=== PATIENT | male | born 1950 | race Asian ===

== ENCOUNTER 2017-01-31 22:33 | Observation (INO) | payer OTHER ==
[2017-01-31 22:51] VITALS: BMI 25.7
[2017-01-31] MEDS ORDERED: ASPIRIN 81 MG CHEWABLE TABLETS PO ONE (22:54)
--- NOTE | 2017-01-31 22:54 | PDOC ---
History of Present Illness - General Chief Complaint: Chest Pain Stated Complaint: CHEST PAIN Time Seen by Provider: 01/31/17 22:53 - History of Present Illness Initial Comments: 01/31/17 23:32 66-year-old male with history of hypertension and diabetes complaining of left- sided chest pain since 4 PM on and off radiating to the left posterior chest. Patient reports slight shortness of breath at the time of the pain. Denies nausea vomiting, diaphoresis, dizziness, headache, lower extremity swelling. Denies recent travel. Patient is currently on baby aspirin daily. Past History - Past Medical History Allergies/Adverse Reactions: Allergies Allergy/AdvReac Type Severity Reaction Status Date / Time No Known Allergies Allergy Verified 01/31/17 22:51 Home Medications: Ambulatory Orders Aspirin [Aspirin EC] 81 mg PO DAILY 12/06/14 Diphenhydramine [Benadryl Capsule -] 50 mg PO HS 12/06/14 Fluticasone Prop 0.05% Nasal [Flonase -] 1 - 2 spray NS DAILY PRN 12/06/14 Gabapentin 300 mg PO BID 12/06/14 Lisinopril [Prinivil -] 2.5 mg PO DAILY 12/06/14 Loratadine 10 mg PO DAILY 12/06/14 Metformin HCl 500 mg PO BID 12/06/14 Omeprazole 20 mg PO DAILY 12/06/14 Sitagliptin Phosphate [Januvia] 50 mg PO DAILY 12/06/14 Glipizide 5 mg PO BID 04/03/15 [place]-3S/Dha/Epa/Fish Oil [Fish Oil 1,200 mg Softgel] 1 each PO DAILY 04/03/15 Pyridoxine HCl (B-6) [Vitamin B6 -] 100 mg PO DAILY 04/03/15 Vitamin E 1,000 unit PO DAILY 04/03/15 Oxycodone HCl/Acetaminophen [Percocet 5/325 -] 1 - 2 tab PO Q4H PRN #20 tablet 04/09/15 Anemia: No Asthma: No Cancer: No Cardiac Disorders: No CVA: No COPD: No CHF: No Dementia: No Diabetes: Yes (controlled with oral medications) GI Disorders: No Disorders: No HTN: No Hypercholesterolemia: No HIV: Yes Liver Disease: No Seizures: No Thyroid Disease: No - Surgical History Abdominal Surgery: No Appendectomy: No Cardiac Surgery: No Cholecystectomy: No Lung Surgery: No Neurologic Surgery: No Orthopedic Surgery: Yes (LEFT CARPAL TUNNEL RELEASE 11/2014) - Suicide/Smoking/Psychosocial Hx Smoking History: Never smoked Have you smoked in the past 12 months: No Information on smoking cessation initiated: No Hx Alcohol Use: No Drug/Substance Use Hx: No Substance Use Type: None Hx Substance Use Treatment: No Cardiac Specific PMH - Complaint Specific PMHX Pacemaker: No Review of Systems - Review of Systems Able to Perform ROS?: Yes Is the patient limited Hungarian proficient: No Constitutional: No: Symptoms Reported, See HPI, Chills, Diaphoresis, Fever, Loss of Appetite, Malaise, Night Sweats, Weakness, Weight Stable, Unintentional Wgt. Loss, Unexplained wgt Loss, Other Respiratory: Yes: Shortness of Breath. No: Symptoms reported, See HPI, Cough, Orthopnea, SOB with Exertion, SOB at Rest, Stridor, Wheezing, Productive cough, Hemoptysis, Other Cardiac (ROS): Yes: Chest Pain. No: Symptoms Reported, See HPI, Edema, Irregular Heart Rate, Lightheadedness, Palpitations, Syncope, Chest Tightness, Other ABD/GI: No: Symptoms Reported, See HPI, Abdominal Distended, Abd. Pain w/ defecation, Blood Streaked Bowels, Constipated, Diarrhea, Difficulty Swallowing , Nausea, Poor Appetite, Poor Fluid Intake, Rectal Bleeding, Vomiting, Indigestion, Abdominal cramping, Tarry Stools, Other *Physical Exam - Vital Signs Last Vital Signs Temp Pulse Resp BP Pulse Ox 97.9 F 72 20 117/69 100 01/31/17 22:48 01/31/17 22:48 01/31/17 22:48 01/31/17 22:48 01/31/17 22:48 - Physical Exam General Appearance: Yes: Appropriately Dressed Respiratory/Chest: positive: Lungs Clear, Normal Breath Sounds. negative: Chest Tender, Respiratory Distress, Accessory Muscle Use, Labored Respiration, Rapid RR, Decreased Breath Sounds, Paradoxal Breathing, Crackles, Rales, Rhonchi , Stridor, Wheezing, Hyperresonant, Dullness, Plerual Rub, Other Cardiovascular: positive: Regular Rhythm, Regular Rate Gastrointestinal/Abdominal: positive: Normal Bowel Sounds, Soft Rectal Exam: positive: heme negative stool Musculoskeletal: positive: Normal Inspection Extremity: positive: Normal Capillary Refill, Normal Inspection, Normal Range of Motion Integumentary: positive: Normal Color, Dry, Warm Neurologic: positive: Fully Oriented, Alert, Normal Mood/Affect Heart Score/ECG Review - History History: Moderately suspicious - Electrocardiogram EKG: Normal - Age Age: >/= 65 - Risk Factors Risk Factors Heart Score: Yes Hx Hypertension, Yes Hx Diabetes Based on the list above the patient has:: 1-2 risk factors - Troponin Troponin: </= normal limit - Score Heart Score - Total: 4 - ECG Intrepretation Rhythm: Regular Rhythm Comment:: 01/31/17 23:35 NSR: 66 ED Treatment Course - LABORATORY CBC & Chemistry Diagram: 02/01/17 00:00 02/01/17 00:00 - ADDITIONAL ORDERS Additional order review: Laboratory Results 02/01/17 02/01/17 02/01/17 00:00 00:00 00:00 PT with INR INR D-Dimer < 200 Sodium 139 Potassium 5.4 H Chloride 104 Carbon Dioxide 28 Anion Gap 7 L BUN 18 Creatinine 1.5 H Creat Clearance w eGFR 46.68 Random Glucose 174 H Calcium 8.8 Magnesium 2.3 Total Bilirubin 0.3 AST 15 ALT 20 Alkaline Phosphatase 82 Creatine Kinase 69 Troponin I < 0.02 Total Protein 7.1 Albumin 3.5 Urine Color Straw Urine Appearance Clear Urine pH 5.0 Ur Specific [place] 1.008 Urine Protein Negative Urine Glucose (UA) 1+ H Urine Ketones Negative Urine Blood Negative Urine Nitrite Negative Urine Bilirubin Negative Urine Urobilinogen Negative 02/01/17 00:00 PT with INR 10.10 INR 0.89 D-Dimer Sodium Potassium Chloride Carbon Dioxide Anion Gap BUN Creatinine Creat Clearance w eGFR Random Glucose Calcium Magnesium Total Bilirubin AST ALT Alkaline Phosphatase Creatine Kinase Troponin I Total Protein Albumin Urine Color Urine Appearance Urine pH Ur Specific [place] Urine Protein Urine Glucose (UA) Urine Ketones Urine Blood Urine Nitrite Urine Bilirubin Urine Urobilinogen 02/01/17 00:00 RBC 4.97 MCV 80.7 MCHC 32.5 RDW 14.8 MPV 8.9 Neutrophils % 47.8 Lymphocytes % 40.1 H Monocytes % 9.3 Eosinophils % 2.1 Basophils % 0.7 - RADIOLOGY Radiology Studies Ordered: Category Date Time Status CHEST PA & LAT [RAD] Stat Radiology 01/31/17 22:54 Taken Chest X-Ray Result: No Infiltrates (official read pending) - Medications Given in the ED: ED Medications Discontinued Medications Generic Name Dose Route Start Last Admin Trade Name Marisa PRN Reason Stop Dose Admin Aspirin 162 mg 01/31/17 22:54 01/31/17 23:47 Asa - PO 01/31/17 22:55 162 mg ONCE ONE Administration Progress Note - Progress Note Progress Note: A: chest pain P: cbc cmp ekg cardiac ua chest xray Medical Decision Making - Medical Decision Making 02/01/17 02:58 patient signed out to facundo SENA/ Natali. patient to be placed on observation criteria for chest pain protocol. *DC/Admit/Observation/Transfer Diagnosis at time of Disposition: Chest pain Qualifiers: Chest pain type: unspecified Qualified Code(s): R07.9 - Chest pain, unspecified - Discharge Dispostion Admit: Yes Decision to Admit order Date/Time: Decision to Admit Order Category Date Time Status Decision to Admit to Hospital Routine Admission 02/01/17 02:55 Ordered - Referrals Referrals: Mery Tran MD [Primary Care Provider] - - Patient Instructions - Post Discharge Activity
[2017-01-31] MEDS ORDERED: ASPIRIN 81 MG CHEWABLE TABLETS ONE (23:38)
[2017-02-01 00:31] LABS: BASOPHIL 0.7 % (0-2.0); EOSINOPHIL 2.1 % (0-4.5); MCH 26.3 pg (25.7-33.7); MCHC 32.5 g/dl (32.0-35.9); MEAN CELL VOLUME 80.7 fl (80-96); MEAN PLT VOLUME 8.9 fl (7.5-11.1); NEUTROPHILS 47.8 % (42.8-82.8); PLATELET COUNT 247 K/MM3 (134-434); RDW 14.8 % (11.9-15.9); WHITE BLOOD COUNT 7.6 K/mm3 (4.0-10.0)
[2017-02-01 00:33] LABS: URINE APPEARANCE CLEAR; URINE BILIRUBIN NEGATIVE (NEGATIVE); URINE BLOOD NEGATIVE (NEGATIVE); URINE COLOR STRAW; URINE GLUCOSE (UA) 1+ (NEGATIVE); URINE KETONE NEGATIVE (NEGATIVE); URINE NITRITE NEGATIVE (NEGATIVE); URINE PROTEIN NEGATIVE (NEGATIVE); URINE UROBILINOGEN NEGATIVE mg/dL (0.2-1.0)
[2017-02-01 00:47] LABS: INR 0.89 (0.82-1.09); PROTHROMBIN TIME (PATIENT) 10.1 SEC (9.98-11.88)
[2017-02-01 01:01] LABS: ALBUMIN 3.5 g/dl (3.4-5.0); ANION GAP 7 (8-16); BILIRUBIN,TOTAL 0.3 mg/dL (0.2-1.0); CALCIUM 8.8 mg/dL (8.5-10.1); CO2 28 mmol/L (21-32); CREATININE 1.5 mg/dL (0.7-1.3); GLUCOSE,RANDOM 174 mg/dL (74-106); MAGNESIUM 2.3 mg/dL (1.8-2.4); SGOT/AST 15 U/L (15-37); SGPT/ALT 20 U/L (12-78); TOT PROT 7.1 g/dl (6.4-8.2)
[2017-02-01 01:04] LABS: ALK PHOS 82 U/L (45-117); CPK 69 IU/L (39-308); TROPONIN I < 0.02 ng/ml (0.00-0.05)
--- NOTE | 2017-02-01 04:02 | HP ---
CHIEF COMPLAINT: chest pain PCP: Sharonda HISTORY OF PRESENT ILLNESS: This is a 66 year old male with a past medical history of DM who presented to the ED with a report of intermittent chest pain since 4pm. Pt denies alleviating or aggravating factors. No pain at present, but reports pain was present about 30 min ago. Reports that he also gets a tingling sensation in his left upper back. + SOB associated with pain. Denies palpitations, abd pain, N/V. Reports that he had an echo and a stress test last year that were both normal. Pt and daughter cannot remember the name of the editing internship he saw. ER course was notable for: (1) troponin neg x1 (2) ECG unremarkable Recent Travel: [place] PAST MEDICAL HISTORY: DM PAST SURGICAL HISTORY: right carpal tunnel and long trigger finger release 04/09/15 left carpal tunnel and ring trigger finger release 12/11/14 Social History: Smoking: pt denies Alcohol: pt denies Drugs: pt denies Family History: mother age 100 father age 69, asthma 2 brothers with no medical problems 4 children with no medical problems Allergies No Known Allergies Allergy (Verified 01/31/17 22:51) HOME MEDICATIONS: 3 Medication Instructions Recorded Aspirin [Aspirin EC] 81 mg PO DAILY 12/06/14 Fluticasone Prop 0.05% Nasal 1 - 2 spray NS DAILY PRN 12/06/14 [Flonase -] Lisinopril [Prinivil -] 2.5 mg PO DAILY 12/06/14 Loratadine 10 mg PO DAILY 12/06/14 Metformin HCl 500 mg PO BID 12/06/14 Omeprazole 20 mg PO DAILY 12/06/14 Sitagliptin Phosphate [Januvia] 50 mg PO DAILY 12/06/14 Glipizide 5 mg PO BID 04/03/15 [place]-3S/Dha/Epa/Fish Oil [Fish 1 each PO DAILY 04/03/15 Oil 1,200 mg Softgel] Pyridoxine HCl (B-6) [Vitamin B6 -] 100 mg PO DAILY 04/03/15 Vitamin E 1,000 unit PO DAILY 04/03/15 Pregabalin [Lyrica -] 75 mg PO DAILY 02/01/17 REVIEW OF SYSTEMS CONSTITUTIONAL: Absent: fever, chills, diaphoresis, generalized weakness, malaise, loss of appetite, weight change HEENT: Absent: rhinorrhea, nasal congestion, throat pain, throat swelling, difficulty swallowing, mouth swelling, ear pain, eye pain, visual changes CARDIOVASCULAR: Present: chest pain Absent: syncope, palpitations, irregular heart rate, lightheadedness, peripheral edema RESPIRATORY: Present: shortness of breath Absent: cough, dyspnea with exertion, orthopnea, wheezing, stridor, hemoptysis GASTROINTESTINAL: Absent: abdominal pain, abdominal distension, nausea, vomiting, diarrhea, constipation, melena, hematochezia GENITOURINARY: Absent: dysuria, frequency, urgency, hesitancy, hematuria, flank pain, genital pain MUSCULOSKELETAL: Absent: myalgia, arthralgia, joint swelling, back pain, neck pain SKIN: Absent: rash, itching, pallor HEMATOLOGIC/IMMUNOLOGIC: Absent: easy bleeding, easy bruising, lymphadenopathy, frequent infections ENDOCRINE: Absent: unexplained weight gain, unexplained weight loss, heat intolerance, cold intolerance NEUROLOGIC: Absent: headache, focal weakness or paresthesias, dizziness, unsteady gait, seizure, mental status changes, bladder or bowel incontinence PSYCHIATRIC: Absent: anxiety, depression, suicidal or homicidal ideation, hallucinations. PHYSICAL EXAMINATION Vital Signs - 24 hr 3 01/31/17 22:48 Temperature 97.9 F Pulse Rate 72 Respiratory 20 Rate Blood Pressure 117/69 O2 Sat by Pulse 100 Oximetry (%) GENERAL: Awake, alert, and fully oriented, in no acute distress. HEAD: Normal with no signs of trauma. EYES: Pupils equal, round and reactive to light, extraocular movements intact, sclera anicteric, conjunctiva clear. No lid lag. EARS, NOSE, THROAT: Ears normal, nares patent, oropharynx clear without exudates. Moist mucous membranes. NECK: Normal range of motion, supple without lymphadenopathy, JVD, or masses. LUNGS: Breath sounds equal, clear to auscultation bilaterally. No wheezes, and no crackles. No accessory muscle use. HEART: Regular rate and rhythm, normal S1 and S2 without murmur, rub or gallop. ABDOMEN: Soft, nontender, not distended, normoactive bowel sounds, no guarding, no rebound, no masses. No hepatomegaly or splenomegaly. MUSCULOSKELETAL: Normal range of motion at all joints. No bony deformities or tenderness. No CVA tenderness. UPPER EXTREMITIES: 2+ pulses, warm, well-perfused. No cyanosis. No clubbing. No peripheral edema. LOWER EXTREMITIES: 2+ pulses, warm, well-perfused. No calf tenderness. No peripheral edema. NEUROLOGICAL: Cranial nerves II-XII intact. Normal speech. Normal gait. PSYCHIATRIC: Cooperative. Good eye contact. Appropriate mood and affect. SKIN: Warm, dry, normal turgor, no rashes or lesions noted, normal capillary refill. Laboratory Results - last 24 hr 3 02/01/17 02/01/17 02/01/17 00:00 00:00 00:00 WBC 7.6 RBC 4.97 Hgb 13.1 Hct 40.2 MCV 80.7 MCH 26.3 MCHC 32.5 RDW 14.8 Plt Count 247 MPV 8.9 Neutrophils % 47.8 Lymphocytes % 40.1 H Monocytes % 9.3 Eosinophils % 2.1 Basophils % 0.7 PT with INR 10.10 INR 0.89 D-Dimer < 200 Sodium 139 Potassium 5.4 H Chloride 104 Carbon Dioxide 28 Anion Gap 7 L BUN 18 Creatinine 1.5 H Creat Clearance w eGFR 46.68 Random Glucose 174 H Calcium 8.8 Magnesium 2.3 Total Bilirubin 0.3 AST 15 ALT 20 Alkaline Phosphatase 82 Creatine Kinase 69 Troponin I < 0.02 Total Protein 7.1 Albumin 3.5 Urine Color Urine Appearance Urine pH Ur Specific [place] Urine Protein Urine Glucose (UA) Urine Ketones Urine Blood Urine Nitrite Urine Bilirubin Urine Urobilinogen 3 Urine Color Straw 02/01/17 00:00 Urine Appearance Clear 02/01/17 00:00 Urine pH 5.0 (5.0-8.0) 02/01/17 00:00 Ur Specific [place] 1.008 (1.001-1.035) 02/01/17 00:00 Urine Protein Negative (NEGATIVE) 02/01/17 00:00 Urine Glucose (UA) 1+ (NEGATIVE) H 02/01/17 00:00 Urine Ketones Negative (NEGATIVE) 02/01/17 00:00 Urine Blood Negative (NEGATIVE) 02/01/17 00:00 Urine Nitrite Negative (NEGATIVE) 02/01/17 00:00 Urine Bilirubin Negative (NEGATIVE) 02/01/17 00:00 ECG Normal sinus rhythm vent rate 667, QTC [address] / T changes ASSESSMENT/PLAN: 66yM with PMH DM presented to the ED with intermittent left sided chest pain since 4pm. Chest pain - troponin neg x1, trend x 2 more - ECG unremarkable, repeat in am - consider cardiology consult and stress test, outpatient vs inpt DM - hold metformin and glipizide, cont januvia - BGM ACHS with novolog sliding scale. DVT PPX - chemoprophylaxis deferred as anticipated LOS<48h FEN - tolerating po - BMP in am - diabetic diet Dispo: Pt currently requires inpatient observation for management of his emergent condition but anticipated LOS is <2MN so will admit to obs. Visit type - Emergency Visit Emergency Visit: Yes ED Registration Date: 01/31/17 Care time: The patient presented to the Emergency Department on the above date and was hospitalized for further evaluation of their emergent condition. - New Patient This patient is new to me today: Yes Date on this admission: 02/01/17 - Critical Care Critical Care patient: No
[2017-02-01] MEDS: INSULIN SLIDING SCALE (NOVOLOG) 1 VIAL SQ SCH ×4 (06:19→21:33)
[2017-02-01] MEDS: sitaGLIPtin PHOSPHATE 50 MG TABLET PO SCH (06:44)
[2017-02-01] MEDS ORDERED: glipiZIDE 5 MG TABLET (FP) PO SCH (07:00)
[2017-02-01 07:35] LABS: BASOPHIL 1.4 % (0-2.0); EOSINOPHIL 2.5 % (0-4.5); MCH 25.7 pg (25.7-33.7); MEAN CELL VOLUME 80.2 fl (80-96); MEAN PLT VOLUME 8.8 fl (7.5-11.1); NEUTROPHILS 45.6 % (42.8-82.8); PLATELET COUNT 239 K/MM3 (134-434); RDW 14.7 % (11.9-15.9); WHITE BLOOD COUNT 7.1 K/mm3 (4.0-10.0)
[2017-02-01 08:18] LABS: ANION GAP 7 (8-16); CALCIUM 8.5 mg/dL (8.5-10.1); CO2 26 mmol/L (21-32); CREATININE 1.2 mg/dL (0.7-1.3); GLUCOSE,RANDOM 107 mg/dL (74-106); MAGNESIUM 2.4 mg/dL (1.8-2.4); PHOSPHOROUS 3.7 mg/dL (2.5-4.9)
[2017-02-01 08:30] LABS: CPK 49 IU/L (39-308); TROPONIN I < 0.02 ng/ml (0.00-0.05)
[2017-02-01] MEDS ORDERED: PYRIDOXINE HCL (B-6) 100 MG TABLET PO SCH (10:00)
--- NOTE | 2017-02-01 10:32 | CON.CARD ---
Consult Consult Specialty:: Cardiology Reason for Consultation:: Chest pain - History of Present Illness History of Present Illness: This is a 66 year old Angolan male with a past medical history of DM who presented to the ED with a report of intermittent chest pain since 4pm. Pt denies alleviating or aggravating factors. No pain at present, but reports pain was present about 30 min ago. Reports that he also gets a tingling sensation in his left upper back. + SOB associated with pain. Denies palpitations, abd pain, N/V. Reports that he had an echo and a stress test last year that were both normal. 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 - History Source History Provided By: Patient, Medical Record - Past Medical History Cardio/Vascular: Yes: HTN, Hyperlipdemia Endocrine: Yes: Diabetes Mellitus - Alcohol/Substance Use Hx Alcohol Use: No - Smoking History Smoking history: Never smoked Have you smoked in the past 12 months: No Home Medications - Allergies Allergies/Adverse Reactions: Allergies Allergy/AdvReac Type Severity Reaction Status Date / Time No Known Allergies Allergy Verified 01/31/17 22:51 - Home Medications Home Medications: Ambulatory Orders Aspirin [Aspirin EC] 81 mg PO DAILY 12/06/14 Fluticasone Prop 0.05% Nasal [Flonase -] 1 - 2 spray NS DAILY PRN 12/06/14 Lisinopril [Prinivil -] 2.5 mg PO DAILY 12/06/14 Loratadine 10 mg PO DAILY 12/06/14 Metformin HCl 500 mg PO BID 12/06/14 Omeprazole 20 mg PO DAILY 12/06/14 Sitagliptin Phosphate [Januvia] 50 mg PO DAILY 12/06/14 Glipizide 5 mg PO BID 04/03/15 [place]-3S/Dha/Epa/Fish Oil [Fish Oil 1,200 mg Softgel] 1 each PO DAILY 04/03/15 Pyridoxine HCl (B-6) [Vitamin B6 -] 100 mg PO DAILY 04/03/15 Vitamin E 1,000 unit PO DAILY 04/03/15 Pregabalin [Lyrica -] 75 mg PO DAILY 02/01/17 Review of Systems - Review of Systems Constitutional: reports: No Symptoms Eyes: reports: No Symptoms HENT: reports: No Symptoms Neck: reports: No Symptoms Cardiovascular: reports: Chest Pain Gastrointestinal: reports: No Symptoms Genitourinary: reports: No Symptoms Breasts: reports: No Symptoms Reported Musculoskeletal: reports: No Symptoms Integumentary: reports: No Symptoms Neurological: reports: No Symptoms Endocrine: reports: No Symptoms Hematology/Lymphatic: reports: No Symptoms Psychiatric: reports: No Symptoms Vital Signs: Vital Signs Temperature 97.6 F 02/01/17 08:00 Pulse Rate 62 02/01/17 08:00 Respiratory Rate 16 02/01/17 08:00 Blood Pressure 110/66 02/01/17 08:00 O2 Sat by Pulse Oximetry (%) 99 02/01/17 05:48 Constitutional: Yes: Well Nourished, No Distress, Calm Eyes: Yes: WNL, Conjunctiva Clear, EOM Intact HENT: Yes: WNL, Atraumatic, Normocephalic Neck: Yes: WNL, Supple, Trachea Midline Respiratory: Yes: WNL, Regular, CTA Bilaterally Gastrointestinal: Yes: WNL, Normal Bowel Sounds Renal/: Yes: WNL Cardiovascular: Yes: WNL, Regular Rate and Rhythm Musculoskeletal: Yes: WNL Extremities: Yes: WNL Integumentary: Yes: WNL Neurological: Yes: WNL, Alert, Oriented ...Motor Strength: WNL Psychiatric: Yes: WNL, Alert, Oriented - Other Data Labs, Other Data: CBC, BMP 02/01/17 06:30 02/01/17 06:30 INR, PTT INR 0.89 (0.82-1.09) 02/01/17 00:00 Troponin, BNP 02/01/17 02/01/17 00:00 06:30 Troponin I < 0.02 < 0.02 Troponin, BNP 02/01/17 02/01/17 00:00 06:30 Troponin I < 0.02 < 0.02 Imaging - Results Chest X-ray: Image Reviewed (no i/e) EKG: Image Reviewed (nsr wnl) Problem List - Problems (1) Chest pain Code(s): R07.9 - CHEST PAIN, UNSPECIFIED Qualifiers: Chest pain type: unspecified Qualified Code(s): R07.9 - Chest pain, unspecified Assessment/Plan CP sx r/o KS neg dm htn hlp Plan ECHO MIBI st ASA keep ldl below 70 mg/dl
[2017-02-01 10:56] LABS: URINE LEUK ESTERASE Negative (NEGATIVE)
[2017-02-01] MEDS: PREGABALIN 75 MG CAPSULE PO SCH (16:02)
[2017-02-01] MEDS: PANTOPRAZOLE 20 MG TABLET (FP) PO SCH (16:02)
[2017-02-01] MEDS: OMEGA-3 ACID ETHYL ESTERS (FATTY-ACIDS) 1 GM CAPSULE (FP) PO SCH (16:02)
[2017-02-01] MEDS: LORATADINE 10 MG TABLET PO SCH (16:02)
[2017-02-01] MEDS: LISINOPRIL 5 MG TABLET (FP) PO SCH (16:03)
[2017-02-01] MEDS: ASPIRIN COATED 81 MG TABLET.EC PO SCH (16:03)
[2017-02-01] MEDS ORDERED: PYRIDOXINE HCL (B-6) 50 MG TABLET (FP) PO SCH (16:07)
[2017-02-01] MEDS ORDERED: INSULIN (NOVOLOG) ASPART 100 UNITS/ML 10ML VIAL ONE ×2 (16:51→18:09)
[2017-02-01] MEDS: VITAMIN E 400 INTERNATIONAL-UNITS CAPSULE (FP) PO SCH ×2 (16:55→17:35)
--- NOTE | 2017-02-01 17:52 | EKG ---
Test Reason : Blood Pressure : / mmHG Vent. Rate : 070 BPM Atrial Rate : 070 BPM P-R Int : 146 ms QRS Dur : 082 ms QT Int : 368 ms P-R-T Axes : 025 023 033 degrees QTc Int : 397 ms NORMAL SINUS RHYTHM ST ELEVATION, CONSIDER EARLY REPOLARIZATION, PERICARDITIS, OR INJURY NO PREVIOUS ECGS AVAILABLE REPEAT EKG IF CLINICALLY INDICATED Confirmed by MANAS NGUYỄN MD ([id number]) on 02/01/2017 5:52:30 PM Referred By: Prerna SOTO Confirmed By:MANAS NGUYỄN MD
[2017-02-01 17:54] LABS: CPK 126 IU/L (39-308); TROPONIN I < 0.02 ng/ml (0.00-0.05)
--- NOTE | 2017-02-01 18:05 | EKG ---
Test Reason : Blood Pressure : / mmHG Vent. Rate : 067 BPM Atrial Rate : 067 BPM P-R Int : 154 ms QRS Dur : 078 ms QT Int : 372 ms P-R-T Axes : 043 040 045 degrees QTc Int : 393 ms NORMAL SINUS RHYTHM RSR' IN V2 NO PREVIOUS ECGS AVAILABLE REPEAT EKG IF CLINICALLY INDICATED Confirmed by MANAS NGUYỄN MD ([id number]) on 02/01/2017 6:05:13 PM Referred By: Confirmed By:MANAS NGUYỄN MD
[2017-02-01] MEDS ORDERED: PT OWN MED DRAWER 7, Y5N ONE (18:09)
[2017-02-01] MEDS: POLYETHYLENE GLYCOL 3350 119 GM BTL PO SCH ×2 (18:22→21:33)
[2017-02-02] MEDS: INSULIN SLIDING SCALE (NOVOLOG) 1 VIAL SQ SCH ×2 (06:16→11:49)
[2017-02-02] MEDS: sitaGLIPtin PHOSPHATE 50 MG TABLET PO SCH ×3 (06:18→07:50)
[2017-02-02] MEDS ORDERED: PT OWN MED DRAWER 7, Y5N ONE (07:46)
[2017-02-02 08:27] LABS: CHOLESTEROL 240 mg/dL (50-200)
[2017-02-02 08:28] VITALS: BP 123/50; PULSE 66; TEMP 97.9
[2017-02-02] MEDS: POLYETHYLENE GLYCOL 3350 119 GM BTL PO SCH (09:43)
[2017-02-02] MEDS: LORATADINE 10 MG TABLET PO SCH (09:48)
[2017-02-02] MEDS: ASPIRIN COATED 81 MG TABLET.EC PO SCH (09:48)
[2017-02-02] MEDS: PANTOPRAZOLE 20 MG TABLET (FP) PO SCH (09:48)
[2017-02-02] MEDS: LISINOPRIL 5 MG TABLET (FP) PO SCH (09:48)
[2017-02-02] MEDS: PREGABALIN 75 MG CAPSULE PO SCH (09:48)
[2017-02-02] MEDS: OMEGA-3 ACID ETHYL ESTERS (FATTY-ACIDS) 1 GM CAPSULE (FP) PO SCH (09:48)
[2017-02-02] MEDS: VITAMIN E 400 INTERNATIONAL-UNITS CAPSULE (FP) PO SCH (09:50)
--- NOTE | 2017-02-02 10:45 | PN ---
Progress Note, Physician History of Present Illness: This is a 66 year old Armenian male with a past medical history of DM who presented to the ED with a report of intermittent chest pain since 4pm. Pt denies alleviating or aggravating factors. No pain at present, but reports pain was present about 30 min ago. Reports that he also gets a tingling sensation in his left upper back. + SOB associated with pain. Denies palpitations, abd pain, N/V. Reports that he had an echo and a stress test last year that were both normal. Pt and daughter cannot remember the name of the commercial sewing instructor he saw. - Current Medication List Current Medications: Active Medications Aspirin (Ecotrin -) 81 mg PO DAILY [facility] Last Admin: 02/02/17 09:48 Dose: 81 mg Atorvastatin Calcium (Lipitor -) 80 mg PO HS [facility] Insulin Aspart (Novolog Vial Sliding Scale -) 1 vial SQ ACHS [facility] PRN Reason: Protocol Last Admin: 02/02/17 06:16 Dose: Not Given Lisinopril (Prinivil) 2.5 mg PO DAILY [facility] Last Admin: 02/02/17 09:48 Dose: 2.5 mg Loratadine (Claritin -) 10 mg PO DAILY [facility] Last Admin: 02/02/17 09:48 Dose: 10 mg [id number] Ethyl Esters (Lovaza -) 1 gm PO DAILY [facility] Last Admin: 02/02/17 09:48 Dose: 1 gm Pantoprazole Sodium (Protonix -) 20 mg PO DAILY [facility] Last Admin: 02/02/17 09:48 Dose: 20 mg Polyethylene Glycol (Miralax (For Daily Use) -) 17 gm PO BID [facility] Last Admin: 02/02/17 09:43 Dose: Not Given Pregabalin (Lyrica -) 75 mg PO DAILY [facility] Last Admin: 02/02/17 09:48 Dose: 75 mg Pyridoxine HCl (Vitamin B6 -) 100 mg PO DAILY [facility] Last Admin: 02/02/17 09:51 Dose: 100 mg Sitagliptin Phosphate (Januvia -) 50 mg PO DAILY@0700 [facility] Last Admin: 02/02/17 07:50 Dose: 50 mg Vitamin E (Vitamin E -) 800 unit PO DAILY [facility] Last Admin: 02/02/17 09:50 Dose: 800 unit - Objective Vital Signs: Vital Signs Temperature 97.9 F 02/02/17 08:27 Pulse Rate 66 02/02/17 08:27 Respiratory Rate 16 02/02/17 08:27 Blood Pressure 123/50 02/02/17 08:27 O2 Sat by Pulse Oximetry (%) 97 02/01/17 20:00 Eyes: Yes: WNL, Conjunctiva Clear, EOM Intact HENT: Yes: WNL, Atraumatic, Normocephalic Neck: Yes: WNL, Supple, Trachea Midline Cardiovascular: Yes: WNL, Regular Rate and Rhythm Respiratory: Yes: WNL, Regular, CTA Bilaterally Gastrointestinal: Yes: WNL, Normal Bowel Sounds Genitourinary: Yes: WNL Musculoskeletal: Yes: WNL Extremities: Yes: WNL Edema: No Integumentary: Yes: WNL Neurological: Yes: WNL, Alert, Oriented ...Motor Strength: WNL Psychiatric: Yes: WNL Labs: CBC, BMP 02/01/17 06:30 02/01/17 06:30 INR, PTT INR 0.89 (0.82-1.09) 02/01/17 00:00 Problem List - Problems (1) Chest pain Code(s): R07.9 - CHEST PAIN, UNSPECIFIED Qualifiers: Chest pain type: unspecified Qualified Code(s): R07.9 - Chest pain, unspecified Assessment/Plan CP sx r/o DC neg dm htn hlp ECHO pending MIBI st negative ASA keep ldl below 70 mg/dl Plan; If echo wnl may be followed as outpatient
--- NOTE | 2017-02-02 12:19 | DS ---
Physical Examination Vital Signs: Vital Signs Temperature 97.9 F 02/02/17 08:27 Pulse Rate 66 02/02/17 08:27 Respiratory Rate 16 02/02/17 08:27 Blood Pressure 123/50 02/02/17 08:27 O2 Sat by Pulse Oximetry (%) 96 02/02/17 08:00 Labs: CBC, BMP 02/01/17 06:30 02/01/17 06:30 Discharge Summary Reason For Visit: CHEST PAIN Current Active Problems Chest pain (Acute) Hospital Course: 10-year ASCVD risk is 32%. Based on recommendations (patient has type 2 diabetes , age 66), will start high intensity statin therapy. Instructed the patient to follow-up with primary care provider within 3-5 days to have LFTs checked. If not able to tolerate Lipitor 80mg po qhs, can decrease dose to 40mg po qhs. Informed patient. Condition: Improved - Instructions Diet, Activity, Other Instructions: Please return to the ED with new, persistent, or worsening symptoms. Please follow-up with providers as indicated. Referrals: Mery Tran MD [Primary Care Provider] - (Please follow-up with your primary care provider within 3-5 days to have your LFTs (liver function tests) performed as you are being started on Lipitor and it can affect your liver. ) Zbigniew Begum MD [Staff Physician] - (Please follow-up with cardiology within 1 week ) Disposition: HOME - Home Medications Comprehensive Discharge Medication List: Ambulatory Orders Aspirin [Aspirin EC] 81 mg PO DAILY 12/06/14 Fluticasone Prop 0.05% Nasal [Flonase -] 1 - 2 spray NS DAILY PRN 12/06/14 Lisinopril [Prinivil -] 2.5 mg PO DAILY 12/06/14 Loratadine 10 mg PO DAILY 12/06/14 Metformin HCl 500 mg PO BID 12/06/14 Omeprazole 20 mg PO DAILY 12/06/14 Sitagliptin Phosphate [Januvia] 50 mg PO DAILY 12/06/14 Glipizide 5 mg PO BID 04/03/15 [place]-3S/Dha/Epa/Fish Oil [Fish Oil 1,200 mg Softgel] 1 each PO DAILY 04/03/15 Pyridoxine HCl (B-6) [Vitamin B6 -] 100 mg PO DAILY 04/03/15 Vitamin E 1,000 unit PO DAILY 04/03/15 Pregabalin [Lyrica -] 75 mg PO DAILY 02/01/17 Atorvastatin Ca [Lipitor] 80 mg PO HS #30 tablet 02/02/17 Polyethylene Glycol 3350 [Miralax 119 gm Btl -] 17 gm PO BID #0 bottle 02/02/17
[2017-02-02] MEDS ORDERED: ATORVASTATIN CA 80 MG TABLET (FP) PO SCH ×2 (22:00)
== END 2017-02-02 12:57 | disposition home or self-care (01) ==
LOC: JER 22:33 → SUPCPDRO 22:33 → J4W 02-01 02:55 → JERBED 02-01 04:54 → UNDOADMOB 02-01 04:54 → J4W 02-01 05:45 → JERBED 02-01 05:45
PROVIDERS: ADMIT Internal Medicine; ATTEND Registered Nurse
DX: R07.9 Chest pain, unspecified (principal); I10 Essential (primary) hypertension; E11.9 Type 2 diabetes mellitus without complications; E78.5 Hyperlipidemia, unspecified; Z21 Asymptomatic human immunodeficiency virus [HIV] infection status; Z79.82 Long term (current) use of aspirin; Z79.84 Long term (current) use of oral hypoglycemic drugs
CPT/HCPCS: 36415; 71020-TC; 78452-TC; 80048; 80053; 80061; 81003; 82550; 83721; 83735; 84100; 84484; 85025; 85379; 85610; 93005; 93010; 93017; 93306-TC; 99284-25; A9502; G0378

== ENCOUNTER 2018-09-10 18:13 | Emergency (ER) | payer OTHER ==
[2018-09-10 18:16] VITALS: BP 149/67; PULSE 86; TEMP 98; BMI 23.6
[2018-09-10] MEDS ORDERED: METHOCARBAMOL 500 MG TABLET PO ONE (18:38)
[2018-09-10] MEDS ORDERED: LIDOCAINE 5% TOPICAL PATCH TP ONE (18:38)
[2018-09-10] MEDS ORDERED: KETOROLAC TROMETHAMINE 60 MG/2 ML VIAL IM ONE (18:38)
--- NOTE | 2018-09-10 18:46 | PDOC ---
History of Present Illness - General Chief Complaint: Back Pain Stated Complaint: BACK Time Seen by Provider: 09/10/18 18:18 History Source: Patient Exam Limitations: Clinical Condition - History of Present Illness Initial Comments: 09/10/18 18:40 Patient with history of chronic back pain with multiple bulging disks seen on MRI a month ago and being followed by neurology present with complaint of 3 weeks history of persistent lower back pain radiating to right posterior leg. Patient reported he was seen by Dr. Kohli did neurology for back pain who ordered MRI in normal dry reported which patient had with him showed multiple bulging days of L2-L5 with disc herniation of L5. Patient reported he was not given anything for pain. Patient reported has been trying to call Dr. Kohli's office the past few weeks for follow-up but has not been able to get through. Denies saddle paresthesia, urinary or fecal incontinence. Timing/Duration: other (3 weeks) Past History - Past Medical History Allergies/Adverse Reactions: Allergies Allergy/AdvReac Type Severity Reaction Status Date / Time No Known Allergies Allergy Verified 09/10/18 18:16 Home Medications: Ambulatory Orders Aspirin [Aspirin EC] 81 mg PO DAILY 12/06/14 Fluticasone Prop 0.05% Nasal [Flonase -] 1 - 2 spray NS DAILY PRN 12/06/14 Lisinopril [Prinivil -] 2.5 mg PO DAILY 12/06/14 Loratadine 10 mg PO DAILY 12/06/14 Omeprazole 20 mg PO DAILY 12/06/14 Sitagliptin Phosphate [Januvia] 50 mg PO DAILY 12/06/14 metFORMIN HCL [Metformin HCl] 500 mg PO BID 12/06/14 Glipizide 5 mg PO BID 04/03/15 [place]-3S/Dha/Epa/Fish Oil [Fish Oil 1,200 mg Softgel] 1 each PO DAILY 04/03/15 Pyridoxine HCl (B-6) [Vitamin B6 -] 100 mg PO DAILY 04/03/15 Vitamin E 1,000 unit PO DAILY 04/03/15 Pregabalin [Lyrica -] 75 mg PO DAILY 02/01/17 Atorvastatin Ca [Lipitor] 80 mg PO HS #30 tablet 02/02/17 Polyethylene Glycol 3350 [Miralax 119 gm Btl -] 17 gm PO BID #0 bottle 02/02/17 Lidocaine 5% Patch [Lidoderm -] 1 patch TP DAILY #30 patch 09/10/18 Methocarbamol [Robaxin -] 750 mg PO Q8H PRN #21 tablet 09/10/18 Naproxen 500 mg PO BID PRN #20 tablet 09/10/18 Anemia: No Asthma: No Cancer: No Cardiac Disorders: No CVA: No COPD: No CHF: No Dementia: No Diabetes: Yes GI Disorders: No Disorders: No HTN: No (pt denies) Hypercholesterolemia: No Liver Disease: No Seizures: No Thyroid Disease: No - Surgical History Abdominal Surgery: No Appendectomy: No Cardiac Surgery: No Cholecystectomy: No Lung Surgery: No Neurologic Surgery: No Orthopedic Surgery: Yes (LEFT CARPAL TUNNEL RELEASE 11/2014) - Suicide/Smoking/Psychosocial Hx Smoking History: Never smoked Have you smoked in the past 12 months: No Hx Alcohol Use: No Drug/Substance Use Hx: No Substance Use Type: None Hx Substance Use Treatment: No Review of Systems - Review of Systems Able to Perform ROS?: Yes Is the patient limited Italian proficient: No Constitutional: No: Malaise, Weakness HEENTM: No: Symptoms Reported Respiratory: No: Symptoms reported Cardiac (ROS): No: Symptoms Reported ABD/GI: No: Symptoms Reported Musculoskeletal: Yes: Symptoms Reported, See HPI, Back Pain (right lower back), Muscle Pain Neurological: Yes: Symptoms reported, Tingling (right LE). No: Weakness All Other Systems: Reviewed and Negative *Physical Exam - Vital Signs Last Vital Signs Temp Pulse Resp BP Pulse Ox 98 F 86 18 149/67 99 09/10/18 18:14 09/10/18 18:14 09/10/18 18:14 09/10/18 18:14 09/10/18 18:14 - Physical Exam Comments: 09/10/18 19:00 GENERAL: Well developed, well nourished. Awake and alert in moderate acute distress. CARDIOVASCULAR: Regular rate and rhythm. No murmurs, rubs, or gallops. PULMONARY: No evidence of respiratory distress. MUSCULOSKELETAL : Moderate tenderness to right paravertebral muscle of L2-S2 which is worse with external rotation of hip to the left. Mild straight leg tests of right lower extremity at 60 degrees No bony deformities EXTREMITIES: No cyanosis. No clubbing. No edema. No calf tenderness. SKIN: Warm and dry. Normal capillary refill. NEUROLOGICAL: Alert, awake, appropriate. No motor deficits in the lower extremities. Gait is normal without ataxia. PSYCHIATRIC: Cooperative. Good eye contact. Appropriate mood and affect. General Appearance: Yes: Nourished, Appropriately Dressed, Apparent Distress, Moderate Distress Medical Decision Making - Medical Decision Making 09/10/18 18:42 Patient with history of chronic back pain with multiple bulging disks seen on MRI a month ago and being followed by neurology present with complaint of 3 weeks history of persistent lower back pain radiating to right posterior leg. Patient reported he was seen by Dr. Kohli did neurology for back pain who ordered MRI in normal dry reported which patient had with him showed multiple bulging days of L2-L5 with disc herniation of L5. Patient reported he was not given anything for pain. Patient reported has been trying to call Dr. Kohli's office the past few weeks for follow-up but has not been able to get through. Denies saddle paresthesia, urinary or fecal incontinence. Exam significant for moderate lower lumber spine paravertebral muscle tenderness on right side with moderate mid-line tenderness. mild positive straight leg test to 60 degrees on RLE. Patient symptoms likely sciatica from disc herniations. Toradol 60mg IM , robaxin 500mg PO ordered for pain and spasm. Patient will be discharge on naproxen prn for pain with robaxin for spasm with lidocaine patch. Referred given for neurosurgery follow-up *DC/Admit/Observation/Transfer Diagnosis at time of Disposition: Lumbago with sciatica, right side Qualifiers: Chronicity: acute Back pain laterality: right Qualified Code(s): M54.41 - Lumbago with sciatica, right side - Discharge Dispostion Disposition: HOME Condition at time of disposition: Stable Decision to Admit order: No - Prescriptions Prescriptions: Lidocaine 5% Patch [Lidoderm -] 1 patch TP DAILY #30 patch Methocarbamol [Robaxin -] 750 mg PO Q8H PRN #21 tablet PRN Reason: Back Pain Naproxen 500 mg PO BID PRN #20 tablet PRN Reason: pain - Referrals Referrals: Lamine Baldwin MD, FAANS [Staff Physician] - - Patient Instructions Printed Discharge Instructions: DI for Back Pain With Sciatica Additional Instructions: Take medications as prescribed. Apply warm compress to back as needed for pain. Follow-up with referred orthopedics specialist physician - Post Discharge Activity
[2018-09-10] MEDS ORDERED: KETOROLAC TROMETHAMINE 60 MG/2 ML VIAL ONE (18:50)
[2018-09-10] MEDS ORDERED: LIDOCAINE 5% TOPICAL PATCH ONE ×2 (18:50→18:51)
== END 2018-09-10 19:27 | disposition home or self-care (01) ==
LOC: JERFT 18:13
PROC: 3E0233Z Introduction of Anti-inflammatory into Muscle, Percutaneous Approach (ICD-10-PCS; principal; 2018-09-10)
DX: M54.41 Lumbago with sciatica, right side (principal); E11.9 Type 2 diabetes mellitus without complications; Z79.84 Long term (current) use of oral hypoglycemic drugs
CPT/HCPCS: 96372; 99281-25

== ENCOUNTER 2018-09-11 11:13 | Emergency (ER) | payer OTHER ==
[2018-09-11 11:22] VITALS: BP 154/75; PULSE 83; TEMP 98.3; BMI 23.6
--- NOTE | 2018-09-11 11:47 | PDOC ---
History of Present Illness - General Chief Complaint: Back Pain Stated Complaint: LOWER BACK PAIN Time Seen by Provider: 09/11/18 11:33 - History of Present Illness Initial Comments: 09/11/18 11:44 68-year-old male presents for evaluation of lumbar radicular symptoms without loss of bowel or bladder function or systemic symptoms. He was seen in the emergency room yesterday given an anti-inflammatory muscle relaxer lidocaine patches. He has not followed up with neurosurgery as directed Past History - Past Medical History Allergies/Adverse Reactions: Allergies Allergy/AdvReac Type Severity Reaction Status Date / Time No Known Allergies Allergy Verified 09/11/18 11:23 Home Medications: Ambulatory Orders Unobtainable 09/11/18 Anemia: No Asthma: No Cancer: No Cardiac Disorders: No CVA: No COPD: No CHF: No Dementia: No Diabetes: Yes GI Disorders: No Disorders: No HTN: No (pt denies) Hypercholesterolemia: No Liver Disease: No Seizures: No Thyroid Disease: No - Surgical History Abdominal Surgery: No Appendectomy: No Cardiac Surgery: No Cholecystectomy: No Lung Surgery: No Neurologic Surgery: No Orthopedic Surgery: Yes (LEFT CARPAL TUNNEL RELEASE 11/2014) - Suicide/Smoking/Psychosocial Hx Smoking History: Never smoked Have you smoked in the past 12 months: No Hx Alcohol Use: No Drug/Substance Use Hx: No Substance Use Type: None Hx Substance Use Treatment: No Review of Systems - Review of Systems Musculoskeletal: Yes: Back Pain *Physical Exam - Vital Signs Last Vital Signs Temp Pulse Resp BP Pulse Ox 98.3 F 83 16 154/75 99 09/11/18 11:20 09/11/18 11:20 09/11/18 11:20 09/11/18 11:20 09/11/18 11:20 - Physical Exam Comments: 09/11/18 11:44 Lumbar spine skin color and temperature are normal range of motion is limited. Is no midline tenderness. Moderate right sided paralumbar musculature spasm and tenderness. 5 out of 5 strength bilateral lower extremities without gross sensory motor deficits positive straight leg raise test on the right. Medical Decision Making - Medical Decision Making 09/11/18 11:45 Gross sensory motor deficits with lumbar radiculopathy. Patient is already on an anti-inflammatory muscle relaxer lidocaine patches. I will have him follow- up with neurosurgery as directed. *DC/Admit/Observation/Transfer Diagnosis at time of Disposition: Lumbago with sciatica, right side - Discharge Dispostion Disposition: HOME Condition at time of disposition: Stable Decision to Admit order: No - Referrals Referrals: Lamine Baldwin MD, FAANS [Staff Physician] - - Patient Instructions Printed Discharge Instructions: Lumbar Radiculopathy, DI for Lumbar Radiculopathy Additional Instructions: Continue your regular medications and return to the emergency room for worsening symptoms. Follow-up with neurosurgery as directed in 1-2 days without fail. - Post Discharge Activity
== END 2018-09-11 11:50 | disposition home or self-care (01) ==
LOC: JERFT 11:13
DX: M54.41 Lumbago with sciatica, right side (principal); M54.16 Radiculopathy, lumbar region
CPT/HCPCS: 99282-25

== ENCOUNTER 2018-09-19 09:39 | Inpatient (IN) | payer OTHER ==
[2018-09-18 13:19] VITALS: BMI 23.6
--- NOTE | 2018-09-19 10:52 | HP ---
History & Physical Update - History History: No Change (no changes in health of symptoms since 09/[address] Palomares.) - Physical Physical: No Change - Assessment Assessment: No Change - Plan Plan: No Change
[2018-09-19] MEDS ORDERED: HYDROmorphone HCl 2 MG/ML VIAL ONE (11:14)
[2018-09-19] MEDS ORDERED: KETAMINE HCL 200 MG/20 ML VIAL ONE (11:14)
[2018-09-19] MEDS ORDERED: PROPOFOL 20 ML ONE ×4 (11:14→12:46)
[2018-09-19] MEDS ORDERED: SUCCINYLCHOLINE CHLORIDE 200 MG/10 ML SYRINGE ONE (11:14)
[2018-09-19] MEDS ORDERED: ROCURONIUM BROMIDE 50 MG/5 ML SYRINGE ONE (11:14)
[2018-09-19] MEDS ORDERED: ceFAZolin SODIUM 1 GM VIAL IVPB ONE (11:20)
[2018-09-19] MEDS ORDERED: VANCOMYCIN 1,000 MG VIAL (RESTRICTED TO ID ONLY) IVPB ONE ×2 (11:20→12:31)
[2018-09-19] MEDS ORDERED: ONDANSETRON 4 MG/2 ML VIAL ONE ×2 (11:38→12:01)
[2018-09-19] MEDS ORDERED: ceFAZolin SODIUM 1 GM VIAL ONE ×2 (11:38→18:42)
[2018-09-19] MEDS ORDERED: DEXAMETHASONE SOD PHOSPHATE 4 MG/1 ML VIAL ONE (11:38)
[2018-09-19] MEDS ORDERED: VANCOMYCIN 1,000 MG VIAL (RESTRICTED TO ID ONLY) ONE ×2 (11:38→12:05)
[2018-09-19] MEDS ORDERED: LIDOCAINE 1%/EPI 1:100000 (20 ML MULTI DOSE VIAL) IJ ONE (11:39)
[2018-09-19] MEDS ORDERED: GENTAMICIN SO4 80 MG/2 ML VIAL ONE (12:05)
[2018-09-19] MEDS ORDERED: THROMBIN (BOVINE) 20,000 UNIT VIAL TP ONE (12:05)
[2018-09-19] MEDS ORDERED: BUPIVACAINE LIPOSOME/PF (EXPAREL) 266 MG/20 ML VIAL ONE ×2 (12:05→12:25)
[2018-09-19] MEDS ORDERED: BUPIVACAINE HCL/PF 0.5% (5MG/ML) 10 ML VIAL ONE (12:05)
[2018-09-19] MEDS ORDERED: BUPIVACAINE HCL/PF 0.25% (2.5MG/ML) 10 ML VIAL ONE (12:25)
[2018-09-19] MEDS ORDERED: BACITRACIN 50,000 UNITS VIAL TP ONE ×2 (12:30→12:31)
[2018-09-19] MEDS ORDERED: GENTAMICIN 80MG PREMIX BAG IVPB ONE (12:30)
[2018-09-19] MEDS ORDERED: GELATIN, ABSORBABLE 100 EACH SPONGE TP ONE (12:32)
[2018-09-19] MEDS ORDERED: THROMBIN (BOVINE) 5,000 UNIT VIAL TP ONE (12:32)
[2018-09-19] MEDS ORDERED: BUPIVACAINE LIPOSOME/PF (EXPAREL) 266 MG/20 ML VIAL NR ONE ×2 (12:35→14:04)
[2018-09-19] MEDS ORDERED: BUPIVACAINE HCL/PF 0.25% (2.5MG/ML) 10 ML VIAL IJ ONE ×2 (12:35→14:04)
[2018-09-19] MEDS ORDERED: GLYCOPYRROLATE 0.2 MG/1 ML VIAL ONE (14:09)
[2018-09-19] MEDS ORDERED: NEOSTIGMINE METHYLSULFATE 0.5 MG/1 ML - 10 ML MDV ONE (14:09)
[2018-09-19] MEDS ORDERED: ONDANSETRON 4 MG/2 ML VIAL IVPUSH PRN ×2 (14:30→14:55)
[2018-09-19] MEDS ORDERED: LACTATED RINGERS SOLUTION 1,000 ML IV SCH (14:30)
[2018-09-19] MEDS ORDERED: MORPHINE SULFATE 2 MG/ML VIAL IVPUSH PRN (14:55)
[2018-09-19] MEDS ORDERED: diphenhydrAMINE HCL 25 MG CAPSULE (FP) PO PRN (14:55)
[2018-09-19] MEDS ORDERED: oxyCODONE HCL 5 MG TABLET PO PRN (14:55)
--- NOTE | 2018-09-19 15:44 | OP ---
Operative Note - Note: Operative Date: 09/19/18 Pre-Operative Diagnosis: lumbar stenosis, HNP, Lumbar raciculopathy Operation: L4-L5 laminectomy, transpedicle decompression and posterior fusion with peek cage Post-Operative Diagnosis: Same as Pre-op Surgeon: Lamine Baldwin Mailroom Courier: Vandana Major Anesthesiologist/ADVERTISING SOLICITOR: Cara Marti Anesthesia: General, Local Estimated Blood Loss (mls): 50 Drains & Tubes with Location: ALY drain right lumbar paravetebral Drains, Volume Out (mls): 150 (urine/aldridge) Fluid Volume Replaced (mls): 2,200 Operative Report Dictated: Yes
[2018-09-19] MEDS: SODIUM CHLORIDE 1,000 ML IV SCH (16:10)
--- NOTE | 2018-09-19 16:12 | PN ---
Progress Note, Physician Chief Complaint: L4-L5 Laminectomy with Fusion History of Present Illness: Previous notes and events reviewed awake and alert NAD no complaints of pain VS stable on monitor ALY with 100cc sanguinous output - Current Medication List Current Medications: Active Medications Diphenhydramine HCl (Benadryl -) 25 mg PO Q6H PRN PRN Reason: FOR ITCHING Docusate Sodium (Colace -) 100 mg PO TID [facility] Fentanyl (Sublimaze Injection -) 50 mcg IVPUSH [id number] PRN PRN Reason: PAIN-PACU ORDER X 4 DOSES ONLY Ferrous Sulfate (Feosol -) 325 mg PO DAILY@0800 [facility] Folic Acid (Folic Acid -) 1 mg PO DAILY [facility] Heparin Sodium (Porcine) (Heparin -) 5,000 unit SQ Q8H [facility] Cefazolin Sodium (Ancef 1 Gm Premixed Ivpb -) 1 gm in 50 mls @ 100 mls/hr IVPB Q8H-IV [facility] Stop: 09/20/18 02:29 Sodium Chloride (Normal Saline -) 1,000 mls @ 100 mls/hr IV ASDIR [facility] Insulin Aspart (Novolog Vial Sliding Scale -) 1 vial SQ TIDAC [facility]; Protocol Lisinopril (Prinivil) 2.5 mg PO DAILY [facility] Metformin HCl (Glucophage Xr -) 500 mg PO BID [facility] Morphine Sulfate (Morphine Sulfate) 2 mg IVPUSH Q4H PRN PRN Reason: breakthrough pain Ondansetron HCl (Zofran Injection) 4 mg IVPUSH Q6H PRN PRN Reason: NAUSEA AND/OR VOMITING Oxycodone HCl (Roxicodone -) 5 mg PO Q4H PRN PRN Reason: PAIN LEVEL 1-5 Oxycodone HCl (Roxicodone -) 10 mg PO Q4H PRN PRN Reason: PAIN LEVEL 6-10 Stop: 09/20/18 14:54 Pregabalin (Lyrica -) 50 mg PO BID [facility] Sitagliptin Phosphate (Januvia -) 50 mg PO DAILY [facility] - Objective Vital Signs: Vital Signs Temperature 98.0 F 09/19/18 14:43 Pulse Rate 90 09/19/18 15:40 Respiratory Rate 16 09/19/18 15:40 Blood Pressure 140/72 09/19/18 15:40 O2 Sat by Pulse Oximetry (%) 100 09/19/18 15:40 Constitutional: Yes: No Distress, Calm Eyes: Yes: Conjunctiva Clear HENT: Yes: Atraumatic Neck: Yes: Supple Cardiovascular: Yes: Regular Rate and Rhythm Respiratory: Yes: Regular, CTA Bilaterally, On Nasal O2 Gastrointestinal: Yes: Soft Genitourinary: Yes: [place] Present Musculoskeletal: Yes: Muscle Weakness Extremities: Yes: WNL Edema: No Neurological: Yes: Alert, Oriented Psychiatric: Yes: Alert, Oriented Problem List - Problems (1) Diabetes mellitus Assessment/Plan: -BGM ACHS -Januvia, Metformin -diabetic diet Code(s): E11.9 - TYPE 2 DIABETES MELLITUS WITHOUT COMPLICATIONS (2) Lumbago with sciatica, right side Assessment/Plan: -POD #0 L4-L5 Laminectomy with Fusion -pending Lumbar CT scan -pain control -ALY drain-100cc sanguinous noted -Cefazolin -stool softeners -Incentive Spirometer Code(s): M54.41 - LUMBAGO WITH SCIATICA, RIGHT SIDE Assessment/Plan see problem list dvt ppx
[2018-09-19] MEDS: INSULIN SLIDING SCALE (NOVOLOG) 1 VIAL SQ SCH (17:23)
[2018-09-19] MEDS ORDERED: PT OWN MED DRAWER 7, Y5N ONE (18:31)
[2018-09-19] MEDS ORDERED: DEXTROSE 5%-WATER - 50 ML IVPB ONE (18:42)
[2018-09-19] MEDS: CEFAZOLIN 1 GM in DEXTROSE 5%-WATER - 50 ML IVPB SCH (18:45)
[2018-09-19] MEDS ORDERED: ACETAMINOPHEN 325 MG TABLET (FP) PO PRN (19:06)
[2018-09-19] MEDS: PREGABALIN 50 MG CAPSULE PO SCH (22:13)
[2018-09-19] MEDS: HEPARIN NA (PORCINE) 5,000 UNITS/ML 1ML VIAL SQ SCH (22:13)
[2018-09-19] MEDS: DOCUSATE SODIUM 100 MG CAPSULE (FP) PO SCH (22:13)
[2018-09-20] MEDS ORDERED: ceFAZolin SODIUM 1 GM VIAL ONE (01:51)
[2018-09-20] MEDS ORDERED: DEXTROSE 5%-WATER - 50 ML IVPB ONE (01:51)
[2018-09-20] MEDS: CEFAZOLIN 1 GM in DEXTROSE 5%-WATER - 50 ML IVPB SCH (01:52)
[2018-09-20] MEDS: SODIUM CHLORIDE 1,000 ML IV SCH (01:53)
[2018-09-20] MEDS: HEPARIN NA (PORCINE) 5,000 UNITS/ML 1ML VIAL SQ SCH ×3 (06:10→21:10)
[2018-09-20] MEDS: DOCUSATE SODIUM 100 MG CAPSULE (FP) PO SCH ×3 (06:10→21:10)
[2018-09-20] MEDS: INSULIN SLIDING SCALE (NOVOLOG) 1 VIAL SQ SCH ×3 (06:17→16:30)
[2018-09-20 06:18] LABS: HEMATOCRIT 32.5 % (35.4-49); HEMOGLOBIN 10.9 GM/dL (11.7-16.9); MCH 29.4 pg (25.7-33.7); MCHC 33.4 g/dl (32.0-35.9); MEAN PLT VOLUME 7.9 fl (7.5-11.1); PLATELET COUNT 281 K/MM3 (134-434); RBC 3.69 M/mm3 (4.00-5.60); RDW 12.7 % (11.9-15.9)
[2018-09-20 06:47] LABS: ALBUMIN 2.8 g/dl (3.4-5.0); BILIRUBIN,TOTAL 0.4 mg/dL (0.2-1); BLOOD UREA NITROGEN 11.4 mg/dL (7-18); CALCIUM 8.1 mg/dL (8.5-10.1); CREATININE 1.1 mg/dL (0.55-1.3); POTASSIUM 3.9 mmol/L (3.5-5.1); TOT PROT 5.8 g/dl (6.4-8.2)
[2018-09-20] MEDS: FERROUS SO4 325 MG TABLET (FP) PO SCH (07:50)
[2018-09-20] MEDS ORDERED: BENZOCAINE/MENTH/CETYLPYRD CL 1 EACH LOZENGE MM PRN (08:20)
--- NOTE | 2018-09-20 08:29 | PN ---
Progress Note (short form) - Note Progress Note: POD 1, s/p L4-L5 laminectomy, transpedicle decompression and posterior fusion with peek cage Pt seen and examined. Reports pain at surgical site overnight, states he took some pain meds overnight with relief. Has not been oob, aldridge in place. Tolerating clears. Endorses constipation and bloating. Denies cp/sob, n/v/d, le weakness/pain. Vital Signs Temp 98.9 F 09/20/18 06:00 Pulse 88 09/20/18 06:00 Resp 20 09/20/18 06:00 BP 137/77 09/20/18 06:00 Pulse Ox 99 09/19/18 16:40 Intake & Output 09/19/18 09/19/18 09/20/18 11:59 23:59 11:59 Intake Total 2770 Output Total 2500 2900 Balance 270 -2900 Weight 125 lb Intake: IV 2720 Normal Saline - 1,000 ml 220 @ 100 mls/hr IV ASDIR [facility] Rx#:[id number] IVPB 50 Output: Drainage 300 100 Right Lower Back 200 100 Urine 2150 2800 [place] 1300 2800 Estimated Blood Loss 50 Other: Voiding Method Indwelling Catheter Height 5 ft 1 in Body Mass Index (BMI) 23.6 Weight Measurement Method Stated by Caregiver CBC, BMP 09/20/18 05:48 09/20/18 05:48 Gen: awake, alert, nad Resp: unlabored on RA Abdo: soft, minimally distended, non tender to palpation Back: dressing c/d/i, drain in place with minimal serosanguinous drainage in reservoir Neuro: B/L les with 5/5 dorsi/plantarflexion, 5/5 hip flex/ext. SILT b/l Palpable dp b/l A/P: 68 y/o M w/ PMHx htn, NIDDM, lumbar instability/low back pain now POD 1, s/ p L4-L5 laminectomy, transpedicle decompression and posterior fusion with peek cage. Afebrile, VSS. Labs wnl (creatinine elevated on past blood work in EMR system-?component of ckd ) Drain output 200ml yesterday, 100ml overnight -Pain control d/w pt and daughter. Pt instructed to ask for pain meds when pain scale is at 4-5 and avoiding waiting until pain is uncontrolled. Pt verbalized understanding. PO acetaminophen changed to IV scheduled. -Miralax scheduled added for constipation -Will f/u TLSO brace -Pt to be oob today, PT -Remove aldridge when pt oob -Keep drain in place, monitor and record output -Continue Ancef 1g q8hrs while drain is in place -DM diet -DVT prophylaxis with b/l scds, heparin 5000units sq q8hrs d/w attending Dr Cota
[2018-09-20] MEDS ORDERED: PT OWN MED DRAWER 7, Y5N ONE (09:18)
[2018-09-20] MEDS: sitaGLIPtin PHOSPHATE 50 MG TABLET PO SCH (09:21)
[2018-09-20] MEDS: FOLIC ACID 1 MG TABLET (FP) PO SCH (09:21)
[2018-09-20] MEDS: PREGABALIN 50 MG CAPSULE PO SCH ×2 (09:21→21:10)
[2018-09-20] MEDS: LISINOPRIL 5 MG TABLET (FP) PO SCH (09:22)
[2018-09-20] MEDS: ACETAMINOPHEN 1000 MG/100 ML VIAL (NON FORMULARY) IVPB SCH ×3 (09:36→20:37)
[2018-09-20] MEDS: POLYETHYLENE GLYCOL 3350 119 GM BTL PO SCH (09:37)
[2018-09-20] MEDS ORDERED: SODIUM PHOSPHATE/NA BIPHOS 133 ML ENEMA PR ONE (10:10)
--- NOTE | 2018-09-20 10:10 | PN ---
Progress Note, Physician Chief Complaint: AWAKE ALERT EVENTS AND NOTES REVIEWED DENIES FEVER OR CHILLS DID HAVE SOME DYSPNEA OVER NIGHT ON ROOM AIR AT THE MOMENT AND IS COMFORTABLE C/O ABDOMINAL DISTENTION - Current Medication List Current Medications: Active Medications Acetaminophen (Ofirmev Injection -) 1,000 mg IVPB Q6H [facility] Stop: 09/21/18 02:31 Last Admin: 09/20/18 09:36 Dose: 1,000 mg Benzocaine/Menthol (Cepacol Lozenge -) 1 each MM PRN PRN PRN Reason: SORE THROAT Diphenhydramine HCl (Benadryl -) 25 mg PO Q6H PRN PRN Reason: FOR ITCHING Docusate Sodium (Colace -) 100 mg PO TID [facility] Last Admin: 09/20/18 06:10 Dose: 100 mg Ferrous Sulfate (Feosol -) 325 mg PO DAILY@0800 [facility] Last Admin: 09/20/18 07:50 Dose: 325 mg Folic Acid (Folic Acid -) 1 mg PO DAILY [facility] Last Admin: 09/20/18 09:21 Dose: 1 mg Heparin Sodium (Porcine) (Heparin -) 5,000 unit SQ Q8H [facility] Last Admin: 09/20/18 06:10 Dose: 5,000 unit Sodium Chloride (Normal Saline -) 1,000 mls @ 100 mls/hr IV ASDIR [facility] Last Admin: 09/20/18 01:53 Dose: 100 mls/hr Insulin Aspart (Novolog Vial Sliding Scale -) 1 vial SQ TIDAC [facility]; Protocol Last Admin: 09/20/18 06:17 Dose: Not Given Lisinopril (Prinivil) 2.5 mg PO DAILY [facility] Last Admin: 09/20/18 09:22 Dose: 2.5 mg Metformin HCl (Glucophage Xr -) 500 mg PO BID [facility] Morphine Sulfate (Morphine Sulfate) 2 mg IVPUSH Q4H PRN PRN Reason: breakthrough pain Last Admin: 09/20/18 04:58 Dose: 2 mg Ondansetron HCl (Zofran Injection) 4 mg IVPUSH Q6H PRN PRN Reason: NAUSEA AND/OR VOMITING Last Admin: 09/20/18 01:53 Dose: 4 mg Oxycodone HCl (Roxicodone -) 5 mg PO Q4H PRN PRN Reason: PAIN LEVEL 1-5 Oxycodone HCl (Roxicodone -) 10 mg PO Q4H PRN PRN Reason: PAIN LEVEL 6-10 Stop: 09/20/18 14:54 Last Admin: 09/20/18 02:40 Dose: 10 mg Polyethylene Glycol (Miralax (For Daily Use) -) 17 gm PO DAILY [facility] Last Admin: 09/20/18 09:37 Dose: 17 gm Pregabalin (Lyrica -) 50 mg PO BID [facility] Last Admin: 09/20/18 09:21 Dose: 50 mg Sitagliptin Phosphate (Januvia -) 50 mg PO DAILY [facility] Last Admin: 09/20/18 09:21 Dose: 50 mg - Objective Vital Signs: Vital Signs Temperature 98.9 F 09/20/18 06:00 Pulse Rate 88 09/20/18 06:00 Respiratory Rate 20 09/20/18 06:00 Blood Pressure 137/77 09/20/18 06:00 O2 Sat by Pulse Oximetry (%) 99 09/19/18 16:40 Constitutional: Yes: Mild Distress Eyes: Yes: WNL HENT: Yes: WNL Neck: Yes: WNL Cardiovascular: Yes: Regular Rate and Rhythm Respiratory: Yes: WNL, Regular Gastrointestinal: Yes: Distention, Tenderness Genitourinary: Yes: [place] Present Musculoskeletal: Yes: Back Pain Extremities: Yes: Other Edema: No Peripheral Pulses WNL: Yes Integumentary: Yes: Other Wound/Incision: Yes: Dressing Dry and Intact, Draining (40 CC SANGUINOUS FLUID FROM DRAIN, WOUND IS CLEAN, NO DISCHARGE) Neurological: Yes: Weakness ...Motor Strength: LLE, RLE Psychiatric: Yes: WNL Labs: CBC, BMP 09/20/18 05:48 09/20/18 05:48 Problem List - Problems (1) S/P lumbar fusion Code(s): Z98.1 - ARTHRODESIS STATUS (2) Diabetes mellitus Code(s): E11.9 - TYPE 2 DIABETES MELLITUS WITHOUT COMPLICATIONS Assessment/Plan POD #1 LUMBAR FUSION PAIN CONTROL BGM CHECK PT EVAL BACK BRACE SMALL, EXCHANGE FOR LARGE ABDOMINAL DISTENTION/DYSPNEA CHECK CXR/KUB R/U ILEUS/CHF OOB TO CHAIR WITH PT DC [facility] F/U
[2018-09-20] MEDS ORDERED: INSULIN (NOVOLOG) ASPART 100 UNITS/ML 10ML VIAL ONE (16:29)
[2018-09-21] MEDS: ACETAMINOPHEN 1000 MG/100 ML VIAL (NON FORMULARY) IVPB SCH (02:02)
[2018-09-21] MEDS: HEPARIN NA (PORCINE) 5,000 UNITS/ML 1ML VIAL SQ SCH ×3 (06:33→21:46)
[2018-09-21] MEDS: DOCUSATE SODIUM 100 MG CAPSULE (FP) PO SCH ×3 (06:33→21:43)
[2018-09-21] MEDS: INSULIN SLIDING SCALE (NOVOLOG) 1 VIAL SQ SCH ×3 (06:35→16:00)
--- NOTE | 2018-09-21 08:54 | PN ---
Progress Note (short form) - Note Progress Note: POD 2, s/p L4-L5 laminectomy, transpedicle decompression and posterior fusion with peek cage Pt seen and examined c/o nausea and abdominal distention. He is still having a lot of pain across the lower back but his pain is controlled. The pain in the right LE has improved. He is tolerating his diet and denies nausea. He has been OOB with PT and ambulating to the bathroom. He denies fever, chills, cp/sob, n/v /d, Vital Signs Temp 98.6 F 09/21/18 06:25 Pulse 84 09/21/18 06:25 Resp 20 09/21/18 06:25 BP 119/73 09/21/18 06:25 Pulse Ox 97 09/20/18 21:00 Intake & Output 09/20/18 09/20/18 09/21/18 11:59 23:59 11:59 Intake Total 240 681 200 Output Total 3800 1970 35 Balance -3560 -1289 165 Intake: IV 381 Normal Saline - 1,000 ml 381 @ 100 mls/hr IV ASDIR [facility] Rx#:[id number] IVPB 300 200 Oral 240 Output: Drainage 100 170 35 Right Lower Back 100 170 35 Urine 3700 1800 [place] 3700 Void 1800 Other: Voiding Method Urinal Urinal # Unmeasured Voids Void 2 Bowel Movement No Gen: awake, alert, nad Resp: unlabored on RA Abdo: soft, minimally distended, mildly ttp throughout Back: incision c/d/i with surrounding tissue intact, no tracking erythema or evidence of edema of collection. J/P drain removed with tip fully intact, drain site clean and dry. Neuro: B/L les with 5/5 dorsi/plantarflexion, compartments soft, supple and non -tender with + DP pulses Abdominal x-ray and CXR pending Problem List - Problems (1) Lumbago with sciatica, right side Assessment/Plan: A/P: 68 y/o M w/ PMHx htn, NIDDM, lumbar instability/low back pain now POD 2, s/ p L4-L5 laminectomy, transpedicle decompression and posterior fusion with peek cage. Right LE radiculopathy improving post op. Afebrile, VSS. AM labs pending Drain removed -f/u AM labs -encourage hydration for consitpation -TLSO brace when OOB -encourage daily IS -d/c ancef as drain has been removed -DM diet -DVT prophylaxis with b/l scds, heparin 5000units sq q8hrs -d/c planning for home vs rehab pending PT evaluation today. Evaluation and plan discussed with Dr Baldwin Code(s): M54.41 - LUMBAGO WITH SCIATICA, RIGHT SIDE
[2018-09-21] MEDS ORDERED: MAGNESIUM HYDROX 2400MG/30ML ORAL SUSPENSION 30 ML CUP PO PRN (09:25)
[2018-09-21 09:27] LABS: HEMOGLOBIN 11.7 GM/dL (11.7-16.9); MCH 29.1 pg (25.7-33.7); MCHC 33.5 g/dl (32.0-35.9); MEAN CELL VOLUME 86.9 fl (80-96); MEAN PLT VOLUME 8.1 fl (7.5-11.1); RBC 4.03 M/mm3 (4.00-5.60); RDW 12.8 % (11.9-15.9); WHITE BLOOD COUNT 14.2 K/mm3 (4.0-10.0)
--- NOTE | 2018-09-21 09:46 | PN ---
Progress Note, Physician Chief Complaint: AWAKE ALERT FEELING BETTER NO FEVER OR CHILLS - Current Medication List Current Medications: Active Medications Benzocaine/Menthol (Cepacol Lozenge -) 1 each MM PRN PRN PRN Reason: SORE THROAT Diphenhydramine HCl (Benadryl -) 25 mg PO Q6H PRN PRN Reason: FOR ITCHING Docusate Sodium (Colace -) 100 mg PO TID [facility] Last Admin: 09/21/18 06:33 Dose: 100 mg Ferrous Sulfate (Feosol -) 325 mg PO DAILY@0800 [facility] Last Admin: 09/20/18 07:50 Dose: 325 mg Folic Acid (Folic Acid -) 1 mg PO DAILY [facility] Last Admin: 09/20/18 09:21 Dose: 1 mg Heparin Sodium (Porcine) (Heparin -) 5,000 unit SQ Q8H [facility] Last Admin: 09/21/18 06:33 Dose: 5,000 unit Insulin Aspart (Novolog Vial Sliding Scale -) 1 vial SQ TIDAC [facility]; Protocol Last Admin: 09/21/18 06:35 Dose: Not Given Lisinopril (Prinivil) 2.5 mg PO DAILY [facility] Last Admin: 09/20/18 09:22 Dose: 2.5 mg Magnesium Hydroxide (Milk Of Magnesia -) 30 ml PO DAILY PRN PRN Reason: CONSTIPATION Metformin HCl (Glucophage Xr -) 500 mg PO BID [facility] Morphine Sulfate (Morphine Sulfate) 2 mg IVPUSH Q4H PRN PRN Reason: breakthrough pain Last Admin: 09/20/18 04:58 Dose: 2 mg Ondansetron HCl (Zofran Injection) 4 mg IVPUSH Q6H PRN PRN Reason: NAUSEA AND/OR VOMITING Last Admin: 09/20/18 01:53 Dose: 4 mg Oxycodone HCl (Roxicodone -) 5 mg PO Q4H PRN PRN Reason: PAIN LEVEL 1-5 Polyethylene Glycol (Miralax (For Daily Use) -) 17 gm PO DAILY [facility] Last Admin: 09/20/18 09:37 Dose: 17 gm Pregabalin (Lyrica -) 50 mg PO BID [facility] Last Admin: 09/20/18 21:10 Dose: 50 mg Sitagliptin Phosphate (Januvia -) 50 mg PO DAILY [facility] Last Admin: 07/10/19 09:21 Dose: 50 mg - Objective Vital Signs: Vital Signs Temperature 98.6 F 09/21/18 06:25 Pulse Rate 84 09/21/18 06:25 Respiratory Rate 20 09/21/18 06:25 Blood Pressure 119/73 09/21/18 06:25 O2 Sat by Pulse Oximetry (%) 97 09/20/18 21:00 Constitutional: Yes: Mild Distress Eyes: Yes: WNL HENT: Yes: WNL Neck: Yes: WNL Cardiovascular: Yes: Regular Rate and Rhythm Respiratory: Yes: WNL Gastrointestinal: Yes: Normal Bowel Sounds, Soft Genitourinary: Yes: WNL Musculoskeletal: Yes: Back Pain Edema: No Peripheral Pulses WNL: Yes Integumentary: Yes: WNL Wound/Incision: Yes: Dressing Dry and Intact Neurological: Yes: Other ...Motor Strength: LLE, RLE Psychiatric: Yes: WNL Problem List - Problems (1) S/P lumbar fusion Code(s): Z98.1 - ARTHRODESIS STATUS (2) Diabetes mellitus Code(s): E11.9 - TYPE 2 DIABETES MELLITUS WITHOUT COMPLICATIONS Assessment/Plan POD #2 LUMBAR FUSION RECOVERING WELL PT EVAL TODAY CXR CLEAR DC PLANNING HOME
[2018-09-21] MEDS: sitaGLIPtin PHOSPHATE 50 MG TABLET PO SCH (10:09)
[2018-09-21] MEDS: PREGABALIN 50 MG CAPSULE PO SCH ×2 (10:09→21:43)
[2018-09-21] MEDS: LISINOPRIL 5 MG TABLET (FP) PO SCH (10:09)
[2018-09-21] MEDS: FOLIC ACID 1 MG TABLET (FP) PO SCH (10:09)
[2018-09-21] MEDS: FERROUS SO4 325 MG TABLET (FP) PO SCH (10:09)
[2018-09-21] MEDS: POLYETHYLENE GLYCOL 3350 119 GM BTL PO SCH (10:10)
[2018-09-21 10:11] LABS: ALBUMIN 3.2 g/dl (3.4-5.0); BILIRUBIN,TOTAL 0.6 mg/dL (0.2-1); BLOOD UREA NITROGEN 12.9 mg/dL (7-18); POTASSIUM 4.3 mmol/L (3.5-5.1); TOT PROT 6.7 g/dl (6.4-8.2)
[2018-09-21 10:14] LABS: PLATELET COUNT 306 K/MM3 (134-434)
[2018-09-21] MEDS: oxyCODONE HCL 5 MG TABLET PO PRN ×3 (10:48→21:43)
--- NOTE | 2018-09-21 17:24 | PATH ---
Surgical Pathology Report Patient Name: RUSLAN VEGA Med. Rec. #: [id number] /Age/Gender: 1950 (Age: 68) / M Account: [id number] Location: [facility] MED/SURG Taken: 09/19/2018 Received: 09/20/2018 Reported: 09/21/2018 Physicians: Lamine La M.D. Specimen(s) Received A: LIGAMENT OF FLAVUM B: DISC L4-5 Clinical History Lumbar stenosis and instability Final Diagnosis A. LIGAMENT OF FLAVUM, LAMINECTOMY, INTERBODY POSTERIOR/LATERAL ARTHRODESIS: BENIGN DENSE CONNECTIVE AND FIBROCARTILAGINOUS TISSUE. B. DISC, L4-5, LAMINECTOMY, INTERBODY POSTERIOR/LATERAL ARTHRODESIS: BENIGN INTERVERTEBRAL DISC TISSUE AND BONE. Electronically Signed Sary Sood M.D. Gross Description A. Received in formalin labeled "ligament of flavum," is a 4.3 x 1.7 x 1.0 cm zuniga-huerta portion of fibrous tissue, consistent with a ligament. Piano Regulator sections are submitted in one cassette. B. Received in formalin labeled "L4-L5 disc," is a 4.5 x 4.0 x 0.4 cm aggregate of zuniga fragments of fibrocartilaginous tissue. A patient representative portion is submitted in one cassette. /09/20/201809/20/2018
[2018-09-21] MEDS ORDERED: VANCOMYCIN 1 GRAM (PRE-DOCKED) 1,000 MG/250 ML BAG IVPB ONE (22:55)
[2018-09-21] MEDS ORDERED: PIPERACILLIN/TAZOB 3.375 GM 3.375 GM in DEXTROSE 5%-WATER - 50 ML IVPB ONE (22:56)
[2018-09-21] MEDS: ACETAMINOPHEN 325 MG TABLET (FP) PO PRN (23:07)
[2018-09-21] MEDS ORDERED: PIPERACILLIN/TAZOBACTAM 3.375 GM VIAL IVPB ONE (23:30)
[2018-09-21] MEDS ORDERED: DEXTROSE 5%-WATER - 50 ML IVPB ONE (23:31)
[2018-09-21 23:58] LABS: URINE APPEARANCE CLEAR; URINE BILIRUBIN NEGATIVE (NEGATIVE); URINE COLOR YELLOW; URINE GLUCOSE (UA) NEGATIVE (NEGATIVE); URINE KETONE NEGATIVE (NEGATIVE); URINE LEUK ESTERASE NEGATIVE (NEGATIVE); URINE NITRITE NEGATIVE (NEGATIVE); URINE PROTEIN NEGATIVE (NEGATIVE); URINE UROBILINOGEN 0.2 mg/dL (0.2-1.0)
[2018-09-22] MEDS: HEPARIN NA (PORCINE) 5,000 UNITS/ML 1ML VIAL SQ SCH ×3 (05:44→21:26)
[2018-09-22] MEDS: DOCUSATE SODIUM 100 MG CAPSULE (FP) PO SCH ×3 (05:44→21:26)
[2018-09-22] MEDS: INSULIN SLIDING SCALE (NOVOLOG) 1 VIAL SQ SCH ×3 (06:00→16:45)
--- NOTE | 2018-09-22 08:12 | SPA.POSTOP ---
- POST-OP NOTE Neurosurgery POD #3 s/p POD 2, s/p L4-L5 laminectomy, transpedicle decompression and posterior fusion with peek cage Pt seen and examined at bedside c/o fever and chills yesterday and overnight. TMax 101.7. He has been OOB ambulating with PT and his abdominal pain has improved and he states he moved his bowels last night and this morning, although his appetite is diminished. He denies any vomiting, CP, or SOB. He is still having lots of right sided lumbar back pain and right LE radiculopathy. Vital Signs Temp 98.5 F 09/22/18 06:38 Pulse 84 09/22/18 06:38 Resp 20 09/22/18 06:38 BP 120/62 09/22/18 06:38 Pulse Ox 97 09/21/18 21:00 Intake & Output 09/21/18 09/21/18 09/22/18 11:59 23:59 11:59 Intake Total 200 650 350 Output Total 35 600 Balance 165 50 350 Intake: IVPB 200 350 Oral 650 Output: Drainage 35 Right Lower Back 35 Urine 600 Void 600 Other: Voiding Method Urinal Toilet # Unmeasured Voids Void 2 1 2 Bowel Movement Yes: 1 Labs pending Gen: awake, alert, nad Resp: unlabored on RA Abdo: soft, minimally distended, mildly ttp throughout Back: incision c/d/i with surrounding tissue intact, no tracking erythema or evidence of edema of collection. ALY drain site clean and dry with no activce d/c Neuro: B/L les with 5/5 dorsi/plantarflexion, compartments soft, supple and non -tender with + DP pulses Abdominal x-ray and CXR 09/21/18 with no evidence of acute pathology Problem List - Problems (1) Lumbago with sciatica, right side Assessment/Plan: A/P: 68 y/o M w/ PMHx htn, NIDDM, lumbar instability/low back pain now POD 2, s/ p L4-L5 laminectomy, transpedicle decompression and posterior fusion with peek cage. Right LE radiculopathy improving post op and not with fevers. Tmax 101.7 VSS. AM labs pending -f/u AM labs -Fever work up pending -ID consult appreciated- IV ABX per ID -encourage hydration and ambulation for constipation -TLSO brace when OOB -encourage daily IS -DM diet -DVT prophylaxis with b/l scds, heparin 5000units sq q8hrs -d/c planning for rehab when medically stable Evaluation and plan discussed with Dr Baldwin Code(s): M54.41 - LUMBAGO WITH SCIATICA, RIGHT SIDE
[2018-09-22 09:40] LABS: ALBUMIN 2.8 g/dl (3.4-5.0); BILIRUBIN,TOTAL 0.7 mg/dL (0.2-1); BLOOD UREA NITROGEN 12.7 mg/dL (7-18); CALCIUM 8.4 mg/dL (8.5-10.1); CREATININE 1.1 mg/dL (0.55-1.3); POTASSIUM 3.9 mmol/L (3.5-5.1); TOT PROT 6.1 g/dl (6.4-8.2)
--- NOTE | 2018-09-22 09:42 | CON.ID ---
Consult Consult Specialty:: infectious disease Referred by:: dr pacheco Reason for Consultation:: postop fever - History of Present Illness Chief Complaint: fever last night History of Present Illness: 68 yo man with PH of DM< hyperlipidemia,lumbar stenosis admitted 09/19 for lumbar laminectomy and fusion. he was given intraop vancomycin and cefazolin and cefazolin was continued until 09/20 He had postop constipation and was given laxatives and had a BM last night he has been urinating without difficulty, no aldridge catheter he denies sob, leg swelling, cough no abdominal pain notes postop incisional pain ambulating with brace last travel Em- returned 2-3 months ago, has felt well, no fevrs until yesterday received vancomycin and zosyn last night - History Source History Provided By: Patient, Medical Record Limitations to Obtaining History: No Limitations - Past Medical History Cardio/Vascular: Yes: HTN, Hyperlipdemia Endocrine: Yes: Diabetes Mellitus - Past Surgical History Past Surgical History: Yes: Laminectomy - Alcohol/Substance Use Hx Alcohol Use: No - Smoking History Smoking history: Never smoked Have you smoked in the past 12 months: No - Social History Usual Living Arrangement: With Child ADL: Independent Place of : Other (em) Came to [place] (year[place] 2003 Home Medications - Allergies Allergies/Adverse Reactions: Allergies Allergy/AdvReac Type Severity Reaction Status Date / Time No Known Allergies Allergy Verified 09/11/18 11:23 - Home Medications Home Medications: Ambulatory Orders Aspirin 81 mg PO DAILY 09/18/18 Lisinopril [Zestril] 2.5 mg PO DAILY 09/18/18 Metformin HCl [Metformin HCl ER] 500 mg PO BID 09/18/18 Oxycodone HCl 5 mg PO PRN PRN 09/18/18 Pregabalin [Lyrica -] 50 mg PO BID 09/18/18 Sitagliptin Phosphate [Januvia] 50 mg PO DAILY 09/18/18 Review of Systems - Review of Systems Constitutional: reports: Chills, Fever Eyes: reports: No Symptoms HENT: reports: No Symptoms Neck: reports: No Symptoms Cardiovascular: reports: No Symptoms Respiratory: reports: No Symptoms Gastrointestinal: reports: No Symptoms. denies: Abdominal Pain Genitourinary: reports: No Symptoms. denies: Burning, Discharge Musculoskeletal: reports: Back Pain Integumentary: reports: No Symptoms Neurological: reports: No Symptoms Physical Exam Vital Signs: Vital Signs Temperature 99.8 F H 09/22/18 08:56 Pulse Rate 94 H 09/22/18 08:56 Respiratory Rate 20 09/22/18 09:00 Blood Pressure 97/53 L 09/22/18 08:56 O2 Sat by Pulse Oximetry (%) 97 09/22/18 09:00 Constitutional: Yes: Well Nourished, No Distress, Calm Eyes: Yes: Conjunctiva Clear, EOM Intact HENT: Yes: Atraumatic, Normocephalic Neck: Yes: Supple Cardiovascular: Yes: Regular Rate and Rhythm Respiratory: Yes: Regular, CTA Bilaterally Gastrointestinal: Yes: Normal Bowel Sounds, Soft, Abdomen, Obese. No: Tenderness, Tenderness, Epigastrium ...Rectal Exam: Yes: Deferred Renal/: No: Bladder Distention, CVA Tenderness - Left, CVA Tenderness - Right Musculoskeletal: Yes: Other (dressing intact- wound examined by PA-) Extremities: Yes: WNL, Other (no signs phlebitis- iv site no erythema or drainage). No: Calf Tenderness Edema: No Neurological: Yes: Alert, Oriented Labs: CBC, BMP 09/22/18 08:35 UA is negative cultures pending CBC is pending Imaging - Results Chest X-ray: Report Reviewed, Image Reviewed (no infiltrate) Problem List - Problems (1) Postoperative fever Code(s): R50.82 - POSTPROCEDURAL FEVER (2) S/P lumbar fusion Code(s): Z98.1 - ARTHRODESIS STATUS Assessment/Plan cultures sent last night he received vancomycin and zosyn last night would hold further antibiotics as no signs of infection are present f/u cultures encourage ambulation encourage incentive spirometry d/w Dr Pacheco
[2018-09-22 09:45] LABS: BASO % 0.4 % (0-2.0); EOS % 0.7 % (0-4.5); HEMATOCRIT 32.8 % (35.4-49); HEMOGLOBIN 10.9 GM/dL (11.7-16.9); MCHC 33.4 g/dl (32.0-35.9); MEAN CELL VOLUME 87.1 fl (80-96); NEUT % 78.9 % (42.8-82.8); PLATELET COUNT 305 K/MM3 (134-434); RBC 3.76 M/mm3 (4.00-5.60); RDW 12.6 % (11.9-15.9); WHITE BLOOD COUNT 14.3 K/mm3 (4.0-10.0)
--- NOTE | 2018-09-22 09:49 | PN ---
Progress Note, Physician Chief Complaint: FEVER OVERNIGHT WILL MONITOR TODAY NO CP/SOB N/V NO DISTRESS - Current Medication List Current Medications: Active Medications Acetaminophen (Tylenol -) 650 mg PO Q4H PRN PRN Reason: FEVER Last Admin: 09/21/18 23:07 Dose: 650 mg Benzocaine/Menthol (Cepacol Lozenge -) 1 each MM PRN PRN PRN Reason: SORE THROAT Diphenhydramine HCl (Benadryl -) 25 mg PO Q6H PRN PRN Reason: FOR ITCHING Docusate Sodium (Colace -) 100 mg PO TID [facility] Last Admin: 09/22/18 05:44 Dose: 100 mg Ferrous Sulfate (Feosol -) 325 mg PO DAILY@0800 [facility] Last Admin: 09/21/18 10:09 Dose: 325 mg Folic Acid (Folic Acid -) 1 mg PO DAILY [facility] Last Admin: 09/21/18 10:09 Dose: 1 mg Heparin Sodium (Porcine) (Heparin -) 5,000 unit SQ Q8H [facility] Last Admin: 09/22/18 05:44 Dose: 5,000 unit Insulin Aspart (Novolog Vial Sliding Scale -) 1 vial SQ TIDAC [facility]; Protocol Last Admin: 09/22/18 06:00 Dose: Not Given Lisinopril (Prinivil) 2.5 mg PO DAILY [facility] Last Admin: 09/21/18 10:09 Dose: 2.5 mg Magnesium Hydroxide (Milk Of Magnesia -) 30 ml PO DAILY PRN PRN Reason: CONSTIPATION Last Admin: 09/21/18 10:10 Dose: 30 ml Metformin HCl (Glucophage Xr -) 500 mg PO BIDAC [facility] Last Admin: 09/22/18 06:08 Dose: 500 mg Morphine Sulfate (Morphine Sulfate) 2 mg IVPUSH Q4H PRN PRN Reason: breakthrough pain Last Admin: 09/20/18 04:58 Dose: 2 mg Ondansetron HCl (Zofran Injection) 4 mg IVPUSH Q6H PRN PRN Reason: NAUSEA AND/OR VOMITING Last Admin: 09/20/18 01:53 Dose: 4 mg Oxycodone HCl (Roxicodone -) 5 mg PO Q4H PRN PRN Reason: PAIN LEVEL 1-5 Last Admin: 09/21/18 21:43 Dose: 5 mg Polyethylene Glycol (Miralax (For Daily Use) -) 17 gm PO DAILY [facility] Last Admin: 09/21/18 10:10 Dose: 17 gm Pregabalin (Lyrica -) 50 mg PO BID [facility] Last Admin: 09/21/18 21:43 Dose: 50 mg Sitagliptin Phosphate (Januvia -) 50 mg PO DAILY [facility] Last Admin: 09/21/18 10:09 Dose: 50 mg - Objective Vital Signs: Vital Signs Temperature 99.8 F H 09/22/18 08:56 Pulse Rate 94 H 09/22/18 08:56 Respiratory Rate 20 09/22/18 09:00 Blood Pressure 97/53 L 09/22/18 08:56 O2 Sat by Pulse Oximetry (%) 97 09/22/18 09:00 Constitutional: Yes: No Distress Cardiovascular: Yes: Regular Rate and Rhythm Respiratory: Yes: WNL Gastrointestinal: Yes: WNL Genitourinary: Yes: WNL Musculoskeletal: Yes: Back Pain Edema: No Peripheral Pulses WNL: Yes Wound/Incision: Yes: Dressing Dry and Intact ...Motor Strength: LLE, RLE Psychiatric: Yes: WNL Labs: CBC, BMP 09/22/18 08:35 Problem List - Problems (1) S/P lumbar fusion Code(s): Z98.1 - ARTHRODESIS STATUS (2) Diabetes mellitus Code(s): E11.9 - TYPE 2 DIABETES MELLITUS WITHOUT COMPLICATIONS Assessment/Plan MONITOR FOR FEVER WORKUP NO ABX INDICATED AT THIS TIME CONTINUE PT/PAIN MEDS
[2018-09-22] MEDS: FOLIC ACID 1 MG TABLET (FP) PO SCH (10:17)
[2018-09-22] MEDS: LISINOPRIL 5 MG TABLET (FP) PO SCH (10:17)
[2018-09-22] MEDS: FERROUS SO4 325 MG TABLET (FP) PO SCH (10:17)
[2018-09-22] MEDS: POLYETHYLENE GLYCOL 3350 119 GM BTL PO SCH (10:18)
[2018-09-22] MEDS: PREGABALIN 50 MG CAPSULE PO SCH ×2 (10:18→21:26)
[2018-09-22] MEDS: sitaGLIPtin PHOSPHATE 50 MG TABLET PO SCH (10:18)
[2018-09-22] MEDS: ACETAMINOPHEN 325 MG TABLET (FP) PO PRN ×2 (10:24→21:24)
[2018-09-22] MEDS ORDERED: INSULIN (NOVOLOG) ASPART 100 UNITS/ML 10ML VIAL ONE ×2 (11:16→17:30)
[2018-09-22] MEDS: oxyCODONE HCL 5 MG TABLET PO PRN ×2 (17:10→21:25)
[2018-09-23] MEDS: oxyCODONE HCL 5 MG TABLET PO PRN ×3 (02:20→21:29)
[2018-09-23] MEDS ORDERED: PT OWN MED DRAWER 7, Y5N ONE ×2 (06:27→17:03)
[2018-09-23] MEDS: DOCUSATE SODIUM 100 MG CAPSULE (FP) PO SCH ×3 (06:38→21:22)
[2018-09-23] MEDS: HEPARIN NA (PORCINE) 5,000 UNITS/ML 1ML VIAL SQ SCH ×3 (06:39→21:22)
[2018-09-23] MEDS: INSULIN SLIDING SCALE (NOVOLOG) 1 VIAL SQ SCH ×3 (07:37→17:02)
[2018-09-23] MEDS: FERROUS SO4 325 MG TABLET (FP) PO SCH (08:54)
[2018-09-23] MEDS: sitaGLIPtin PHOSPHATE 50 MG TABLET PO SCH (09:00)
[2018-09-23] MEDS: FOLIC ACID 1 MG TABLET (FP) PO SCH (09:00)
[2018-09-23] MEDS: ACETAMINOPHEN 325 MG TABLET (FP) PO PRN (09:00)
[2018-09-23] MEDS: PREGABALIN 50 MG CAPSULE PO SCH ×2 (09:00→21:21)
[2018-09-23] MEDS: LISINOPRIL 5 MG TABLET (FP) PO SCH (09:00)
[2018-09-23] MEDS: POLYETHYLENE GLYCOL 3350 119 GM BTL PO SCH (09:06)
--- NOTE | 2018-09-23 10:06 | PN ---
Progress Note (short form) - Note Progress Note: feels well today low grade temp last night no chills off antibiotics Vital Signs Period Temp Pulse Resp BP Sys/Cramer Pulse Ox Last 24 Hr 98.4 F-100.2 F 78-87 18-20 92-131/55-85 98 cor-rrr lungs clear, decreased bs at bases abd soft,nt ext no edema CBC, BMP 09/22/18 08:35 09/22/18 08:35 Microbiology 09/21/18 23:20 Blood - Peripheral Venous Blood Culture - Preliminary NO GROWTH OBTAINED AFTER 24 HOURS, INCUBATION TO CONTINUE FOR 4 DAYS. 09/21/18 23:20 Blood - Peripheral Venous Blood Culture - Preliminary NO GROWTH OBTAINED AFTER 24 HOURS, INCUBATION TO CONTINUE FOR 4 DAYS. a/p post op fever resolving s/p laminectomy repeat cbc observe off antibiotics Problem List - Problems (1) Postoperative fever Code(s): R50.82 - POSTPROCEDURAL FEVER (2) S/P lumbar fusion Code(s): Z98.1 - ARTHRODESIS STATUS
[2018-09-23] MEDS ORDERED: INSULIN (NOVOLOG) ASPART 100 UNITS/ML 10ML VIAL ONE (12:14)
--- NOTE | 2018-09-23 19:39 | PN ---
Progress Note, Physician Chief Complaint: L4-L5 Laminectomy with Fusion History of Present Illness: Previous notes and events reviewed awake and alert NAD ambulating with walker sts having minor pain to surgical site BC neg fever spike this morning 100.8F - Current Medication List Current Medications: Active Medications Acetaminophen (Tylenol -) 650 mg PO Q4H PRN PRN Reason: FEVER Last Admin: 09/23/18 09:00 Dose: 650 mg Benzocaine/Menthol (Cepacol Lozenge -) 1 each MM PRN PRN PRN Reason: SORE THROAT Diphenhydramine HCl (Benadryl -) 25 mg PO Q6H PRN PRN Reason: FOR ITCHING Docusate Sodium (Colace -) 100 mg PO TID [facility] Last Admin: 09/23/18 14:04 Dose: 100 mg Ferrous Sulfate (Feosol -) 325 mg PO DAILY@0800 [facility] Last Admin: 09/23/18 08:54 Dose: 325 mg Folic Acid (Folic Acid -) 1 mg PO DAILY [facility] Last Admin: 09/23/18 09:00 Dose: 1 mg Heparin Sodium (Porcine) (Heparin -) 5,000 unit SQ Q8H [facility] Last Admin: 09/23/18 14:04 Dose: 5,000 unit Insulin Aspart (Novolog Vial Sliding Scale -) 1 vial SQ TIDAC [facility]; Protocol Last Admin: 09/23/18 17:02 Dose: Not Given Lisinopril (Prinivil) 2.5 mg PO DAILY [facility] Last Admin: 09/23/18 09:00 Dose: 2.5 mg Magnesium Hydroxide (Milk Of Magnesia -) 30 ml PO DAILY PRN PRN Reason: CONSTIPATION Last Admin: 09/21/18 10:10 Dose: 30 ml Metformin HCl (Glucophage Xr -) 500 mg PO BIDAC [facility] Last Admin: 09/23/18 17:11 Dose: 500 mg Ondansetron HCl (Zofran Injection) 4 mg IVPUSH Q6H PRN PRN Reason: NAUSEA AND/OR VOMITING Last Admin: 09/20/18 01:53 Dose: 4 mg Oxycodone HCl (Roxicodone -) 5 mg PO Q4H PRN PRN Reason: PAIN SCALE 1-10 Last Admin: 09/23/18 06:37 Dose: 5 mg Polyethylene Glycol (Miralax (For Daily Use) -) 17 gm PO DAILY [facility] Last Admin: 09/23/18 09:06 Dose: 17 gm Pregabalin (Lyrica -) 50 mg PO BID [facility] Last Admin: 09/23/18 09:00 Dose: 50 mg Sitagliptin Phosphate (Januvia -) 50 mg PO DAILY [facility] Last Admin: 09/23/18 09:00 Dose: 50 mg - Objective Vital Signs: Vital Signs Temperature 98.4 F 09/23/18 16:10 Pulse Rate 72 09/23/18 16:10 Respiratory Rate 18 09/23/18 16:10 Blood Pressure 82/47 L 09/23/18 16:10 O2 Sat by Pulse Oximetry (%) 98 09/23/18 09:00 Constitutional: Yes: No Distress, Calm Eyes: Yes: Conjunctiva Clear HENT: Yes: Atraumatic Cardiovascular: Yes: Regular Rate and Rhythm Respiratory: Yes: Regular, CTA Bilaterally Gastrointestinal: Yes: Normal Bowel Sounds, Soft Musculoskeletal: Yes: Muscle Weakness Extremities: Yes: WNL Edema: No Neurological: Yes: Alert, Oriented Psychiatric: Yes: Alert, Oriented Labs: CBC, BMP 09/22/18 08:35 09/22/18 08:35 Microbiology 09/22/18 04:55 Urine - Urine Clean Catch Urine Culture - Final NO GROWTH OBTAINED 09/21/18 23:20 Blood - Peripheral Venous Blood Culture - Preliminary NO GROWTH OBTAINED AFTER 24 HOURS, INCUBATION TO CONTINUE FOR 4 DAYS. 09/21/18 23:20 Blood - Peripheral Venous Blood Culture - Preliminary NO GROWTH OBTAINED AFTER 24 HOURS, INCUBATION TO CONTINUE FOR 4 DAYS. Problem List - Problems (1) Diabetes mellitus Assessment/Plan: -BGM ACHS -Januvia, Metformin -diabetic diet Code(s): E11.9 - TYPE 2 DIABETES MELLITUS WITHOUT COMPLICATIONS (2) Lumbago with sciatica, right side Assessment/Plan: -s/p L4-L5 Laminectomy with Fusion -pain control -Cefazolin -stool softeners -Incentive Spirometer -TLSO brace -Lyrica -if no fever spike d/c home in AM Code(s): M54.41 - LUMBAGO WITH SCIATICA, RIGHT SIDE Assessment/Plan see problem list dvt ppx
[2018-09-24] MEDS: oxyCODONE HCL 5 MG TABLET PO PRN ×3 (01:28→17:49)
[2018-09-24] MEDS: DOCUSATE SODIUM 100 MG CAPSULE (FP) PO SCH ×3 (06:20→21:04)
[2018-09-24] MEDS: HEPARIN NA (PORCINE) 5,000 UNITS/ML 1ML VIAL SQ SCH ×3 (06:21→21:04)
[2018-09-24] MEDS: INSULIN SLIDING SCALE (NOVOLOG) 1 VIAL SQ SCH ×3 (06:23→17:41)
[2018-09-24 08:31] LABS: BASO % 0.5 % (0-2.0); EOS % 1.9 % (0-4.5); HEMATOCRIT 29.4 % (35.4-49); LYMPH % 23.6 % (8-40); MCH 29.6 pg (25.7-33.7); MCHC 34.2 g/dl (32.0-35.9); MEAN CELL VOLUME 86.6 fl (80-96); MONO % 9.1 % (3.8-10.2); NEUT % 64.9 % (42.8-82.8); RBC 3.39 M/mm3 (4.00-5.60); RDW 12.6 % (11.9-15.9)
[2018-09-24 08:48] LABS: PLATELET COUNT 347 K/MM3 (134-434)
[2018-09-24] MEDS: FERROUS SO4 325 MG TABLET (FP) PO SCH (08:50)
--- NOTE | 2018-09-24 09:45 | PN ---
Progress Note (short form) - Note Progress Note: feels well today afebrile Vital Signs Period Temp Pulse Resp BP Sys/Cramer Pulse Ox Last 24 Hr 97.6 F-98.7 F 72-85 18-20 82-102/47-57 98 cor-rrr lungs clear abd soft,nt +dressing (change per surgeon) ext no edema CBC, BMP 09/24/18 07:11 09/22/18 08:35 Microbiology 09/21/18 23:20 Blood - Peripheral Venous Blood Culture - Preliminary NO GROWTH OBTAINED AFTER 48 HOURS, INCUBATION TO CONTINUE FOR 3 DAYS. 09/21/18 23:20 Blood - Peripheral Venous Blood Culture - Preliminary NO GROWTH OBTAINED AFTER 48 HOURS, INCUBATION TO CONTINUE FOR 3 DAYS. 09/22/18 04:55 Urine - Urine Clean Catch Urine Culture - Final NO GROWTH OBTAINED a/p post op fever resolved s/p laminectomy-wound care/managemen postop per surgery please call back if needed Problem List - Problems (1) Postoperative fever Code(s): R50.82 - POSTPROCEDURAL FEVER (2) S/P lumbar fusion Code(s): Z98.1 - ARTHRODESIS STATUS
[2018-09-24] MEDS: LISINOPRIL 5 MG TABLET (FP) PO SCH (10:07)
[2018-09-24] MEDS: sitaGLIPtin PHOSPHATE 50 MG TABLET PO SCH (10:07)
[2018-09-24] MEDS: FOLIC ACID 1 MG TABLET (FP) PO SCH (10:07)
[2018-09-24] MEDS: PREGABALIN 50 MG CAPSULE PO SCH ×2 (10:07→21:04)
[2018-09-24] MEDS: POLYETHYLENE GLYCOL 3350 119 GM BTL PO SCH (13:08)
--- NOTE | 2018-09-24 14:43 | DS ---
"Physical Examination Vital Signs: Vital Signs Temperature 99 F 09/24/18 10:00 Pulse Rate 75 09/24/18 10:00 Respiratory Rate 18 09/24/18 10:00 Blood Pressure 116/76 09/24/18 10:00 O2 Sat by Pulse Oximetry (%) 98 09/24/18 09:00 Findings/Remarks: Patient is a 68 y/o male with past medical history of HTN, DM, Lumbago. Patient is s/p L4-L5 laminectomy with fusion. Constitutional: Yes: No Distress, Calm Eyes: Yes: Conjunctiva Clear HENT: Yes: Atraumatic Cardiovascular: Yes: Regular Rate and Rhythm Respiratory: Yes: Regular, CTA Bilaterally Musculoskeletal: Yes: Muscle Weakness Extremities: Yes: WNL Edema: No Wound/Incision: Yes: Dressing Dry and Intact Neurological: Yes: Alert, Oriented Psychiatric: Yes: Alert, Oriented Labs: CBC, BMP 09/24/18 07:11 09/22/18 08:35 Discharge Summary Reason For Visit: LUMBAR STENOSIS & INSTABILITY Current Active Problems Diabetes mellitus (Acute) Postoperative fever (Acute) S/P lumbar fusion (Acute) Hospital Course: see progress notes Laboratory Tests 09/19/18 09/19/18 09/19/18 09:49 10:30 10:58 WBC RBC Hgb Hct MCV MCH MCHC RDW Plt Count MPV Absolute Neuts (auto) Neutrophils % Lymphocytes % Monocytes % Eosinophils % Basophils % Nucleated RBC % Sodium Potassium Chloride Carbon Dioxide Anion Gap BUN Creatinine Est GFR (CKD-EPI)AfAm Est GFR (CKD-EPI)NonAf POC Glucometer 117 Random Glucose Lactic Acid Calcium Total Bilirubin AST ALT Alkaline Phosphatase Total Protein Albumin Urine Color Urine Appearance Urine pH Ur Specific [place] Urine Protein Urine Glucose (UA) Urine Ketones Urine Blood Urine Nitrite Urine Bilirubin Urine Urobilinogen Ur Leukocyte Esterase Blood Type A POSITIVE A POSITIVE Antibody Screen Negative 09/19/18 09/20/18 09/20/18 15:23 05:48 05:48 WBC 12.0 H RBC 3.69 L Hgb 10.9 L Hct 32.5 L D MCV 88.0 MCH 29.4 D MCHC 33.4 RDW 12.7 D Plt Count 281 MPV 7.9 D Absolute Neuts (auto) Neutrophils % Lymphocytes % Monocytes % Eosinophils % Basophils % Nucleated RBC % Sodium 138 Potassium 3.9 Chloride 104 Carbon Dioxide 28 Anion Gap 7 L BUN 11.4 Creatinine 1.1 Est GFR (CKD-EPI)AfAm 78.97 Est GFR (CKD-EPI)NonAf 68.13 POC Glucometer 200 Random Glucose 135 H Lactic Acid Calcium 8.1 L Total Bilirubin 0.4 AST 15 ALT 18 Alkaline Phosphatase 65 Total Protein 5.8 L Albumin 2.8 L Urine Color Urine Appearance Urine pH Ur Specific [place] Urine Protein Urine Glucose (UA) Urine Ketones Urine Blood Urine Nitrite Urine Bilirubin Urine Urobilinogen Ur Leukocyte Esterase Blood Type Antibody Screen 09/20/18 09/20/18 09/20/18 06:15 12:04 16:28 WBC RBC Hgb Hct MCV MCH MCHC RDW Plt Count MPV Absolute Neuts (auto) Neutrophils % Lymphocytes % Monocytes % Eosinophils % Basophils % Nucleated RBC % Sodium Potassium Chloride Carbon Dioxide Anion Gap BUN Creatinine Est GFR (CKD-EPI)AfAm Est GFR (CKD-EPI)NonAf POC Glucometer 141 141 152 Random Glucose Lactic Acid Calcium Total Bilirubin AST ALT Alkaline Phosphatase Total Protein Albumin Urine Color Urine Appearance Urine pH Ur Specific [place] Urine Protein Urine Glucose (UA) Urine Ketones Urine Blood Urine Nitrite Urine Bilirubin Urine Urobilinogen Ur Leukocyte Esterase Blood Type Antibody Screen 09/21/18 09/21/18 09/21/18 06:34 08:45 08:45 WBC 14.2 H RBC 4.03 Hgb 11.7 Hct 35.0 L MCV 86.9 MCH 29.1 MCHC 33.5 RDW 12.8 Plt Count 306 MPV 8.1 Absolute Neuts (auto) Neutrophils % Lymphocytes % Monocytes % Eosinophils % Basophils % Nucleated RBC % Sodium 136 Potassium 4.3 Chloride 101 Carbon Dioxide 27 Anion Gap 8 BUN 12.9 Creatinine 1.0 Est GFR (CKD-EPI)AfAm 88.61 Est GFR (CKD-EPI)NonAf 76.45 POC Glucometer 133 Random Glucose 150 H Lactic Acid Calcium 9.0 Total Bilirubin 0.6 AST 14 L ALT 18 Alkaline Phosphatase 77 Total Protein 6.7 Albumin 3.2 L Urine Color Urine Appearance Urine pH Ur Specific [place] Urine Protein Urine Glucose (UA) Urine Ketones Urine Blood Urine Nitrite Urine Bilirubin Urine Urobilinogen Ur Leukocyte Esterase Blood Type Antibody Screen 09/21/18 09/21/18 09/21/18 11:44 15:57 23:30 WBC RBC Hgb Hct MCV MCH MCHC RDW Plt Count MPV Absolute Neuts (auto) Neutrophils % Lymphocytes % Monocytes % Eosinophils % Basophils % Nucleated RBC % Sodium Potassium Chloride Carbon Dioxide Anion Gap BUN Creatinine Est GFR (CKD-EPI)AfAm Est GFR (CKD-EPI)NonAf POC Glucometer 225 152 Random Glucose Lactic Acid Calcium Total Bilirubin AST ALT Alkaline Phosphatase Total Protein Albumin Urine Color Yellow Urine Appearance Clear Urine pH 7.0 D Ur Specific [place] 1.005 L Urine Protein Negative Urine Glucose (UA) Negative Urine Ketones Negative Urine Blood Negative Urine Nitrite Negative Urine Bilirubin Negative Urine Urobilinogen 0.2 Ur Leukocyte Esterase Negative Blood Type Antibody Screen 09/22/18 09/22/18 09/22/18 00:05 05:54 08:35 WBC 14.3 H RBC 3.76 L Hgb 10.9 L Hct 32.8 L MCV 87.1 MCH 29.0 MCHC 33.4 RDW 12.6 Plt Count 305 MPV 8.0 Absolute Neuts (auto) 11.2 H Neutrophils % 78.9 D Lymphocytes % 12.0 D Monocytes % 8.0 Eosinophils % 0.7 Basophils % 0.4 Nucleated RBC % 0 Sodium Potassium Chloride Carbon Dioxide Anion Gap BUN Creatinine Est GFR (CKD-EPI)AfAm Est GFR (CKD-EPI)NonAf POC Glucometer 126 Random Glucose Lactic Acid 1.0 Calcium Total Bilirubin AST ALT Alkaline Phosphatase Total Protein Albumin Urine Color Urine Appearance Urine pH Ur Specific [place] Urine Protein Urine Glucose (UA) Urine Ketones Urine Blood Urine Nitrite Urine Bilirubin Urine Urobilinogen Ur Leukocyte Esterase Blood Type Antibody Screen 09/22/18 09/24/18 08:35 07:11 WBC 10.0 RBC 3.39 L Hgb 10.0 L Hct 29.4 L MCV 86.6 MCH 29.6 MCHC 34.2 RDW 12.6 Plt Count 347 MPV 8.0 Absolute Neuts (auto) 6.5 Neutrophils % 64.9 Lymphocytes % 23.6 D Monocytes % 9.1 Eosinophils % 1.9 D Basophils % 0.5 Nucleated RBC % 0 Sodium 135 L Potassium 3.9 Chloride 102 Carbon Dioxide 26 Anion Gap 7 L BUN 12.7 Creatinine 1.1 Est GFR (CKD-EPI)AfAm 78.97 Est GFR (CKD-EPI)NonAf 68.13 POC Glucometer Random Glucose 147 H Lactic Acid Calcium 8.4 L Total Bilirubin 0.7 AST 10 L ALT 15 Alkaline Phosphatase 68 Total Protein 6.1 L Albumin 2.8 L Urine Color Urine Appearance Urine pH Ur Specific [place] Urine Protein Urine Glucose (UA) Urine Ketones Urine Blood Urine Nitrite Urine Bilirubin Urine Urobilinogen Ur Leukocyte Esterase Blood Type Antibody Screen Active Medications Generic Name Dose Route Start Last Admin Trade Name Shawnq PRN Reason Stop Dose Admin Acetaminophen 650 mg 09/21/18 22:52 09/23/18 09:00 Tylenol - PO 650 mg Q4H PRN Administration FEVER Benzocaine/Menthol 1 each 09/20/18 08:20 Cepacol Lozenge - MM PRN PRN SORE THROAT Diphenhydramine HCl 25 mg 09/19/18 14:55 Benadryl - PO Q6H PRN FOR ITCHING Docusate Sodium 100 mg 09/19/18 22:00 09/24/18 13:08 Colace - PO 100 mg TID MARCIANO Administration Ferrous Sulfate 325 mg 09/20/18 08:00 09/24/18 08:50 Feosol - PO 325 mg DAILY@0800 [facility] Administration Folic Acid 1 mg 09/20/18 10:00 09/24/18 10:07 Folic Acid - PO 1 mg DAILY [facility] Administration Heparin Sodium (Porcine) 5,000 unit 09/19/18 22:00 09/24/18 13:08 Heparin - SQ 5,000 unit Q8H [facility] Administration Insulin Aspart 1 vial 09/19/18 16:30 09/24/18 17:41 Novolog Vial Sliding Scale - SQ Not Given TIDAC [facility] Protocol Lisinopril 2.5 mg 09/20/18 10:00 09/24/18 10:07 Prinivil PO 2.5 mg DAILY MARCIANO Administration Magnesium Hydroxide 30 ml 09/21/18 09:25 09/21/18 10:10 Milk Of Magnesia - PO 30 ml DAILY PRN Administration CONSTIPATION Metformin HCl 500 mg 09/22/18 07:00 09/24/18 17:45 Glucophage Xr - PO 500 mg BIDAC [facility] Administration Ondansetron HCl 4 mg 09/19/18 14:30 09/20/18 01:53 Zofran Injection IVPUSH 4 mg Q6H PRN Administration NAUSEA AND/OR VOMITING Oxycodone HCl 5 mg 09/22/18 17:06 09/24/18 17:49 Roxicodone - PO 5 mg Q4H PRN Administration PAIN SCALE 1-10 Polyethylene Glycol 17 gm 09/20/18 10:00 09/24/18 13:08 Miralax (For Daily Use) - PO 17 gm DAILY MARCIANO Administration Pregabalin 50 mg 09/19/18 22:00 09/24/18 10:07 Lyrica - PO 50 mg BID MARCIANO Administration Sitagliptin Phosphate 50 mg 09/20/18 10:00 09/24/18 10:07 Januvia - PO 50 mg DAILY MARCIANO Administration Microbiology 09/21/18 23:20 Blood - Peripheral Venous Blood Culture - Preliminary NO GROWTH OBTAINED AFTER 48 HOURS, INCUBATION TO CONTINUE FOR 3 DAYS. 09/21/18 23:20 Blood - Peripheral Venous Blood Culture - Preliminary NO GROWTH OBTAINED AFTER 48 HOURS, INCUBATION TO CONTINUE FOR 3 DAYS. 09/22/18 04:55 Urine - Urine Clean Catch Urine Culture - Final NO GROWTH OBTAINED Condition: Good - Instructions Diet, Activity, Other Instructions: Post Operative Instructions Physical Activity Resume your normal everyday activity as tolerated. No heavy lifting or exercise until seen by your surgeon. You may walk unlimited amounts and climb stairs. You may resume driving the car when you feel safe and comfortable behind the wheel and you are no longer wearing your brace. Do not operate a vehicle while taking narcotic medication. Brace If you had back surgery, wear TLSO Brace whenever out of bed. May remove to sleep and shower. Wound Care Keep your incision clean, dry and covered at all times. Apply an occlusive dressing (Saran wrap or Tegaderm) when showering to avoid getting your incision wet. Do not submerge incision or apply ointments or creams. The george will be removed in the office in 10-14 days post-op. Diet There are no dietary restrictions. Eat healthy, high-fiber foods. Drink 6-8 glasses of liquid each day. This will assist in keeping your bowels regular. Pain Management You may take Tylenol or acetaminophen. Any pain prescription medication ordered should be taken as prescribed for moderate to severe pain. Avoid any ibuprofen (Motrin, Advil, Aleve, Toradol, etc) for 3 months unless otherwise discussed with your surgeon. Call Dr La for any of the following: Severe pain not relieved by medication Fever of 101 or higher Excessive bleeding or drainage on dressing Inability to urinate Any chest pain or shortness of breath, seek Emergency Care. Call the office to confirm a post-operative appointment for 2-3 weeks post-op Lamine Baldwin MD [facility] [address] [place] [address] [facility]: This report was requested by: Charisse Ortiz | Reference #: [id number] follow uo with PMD 1 week after discharge take medication as prescribed follow up with Dr Baldwin in 2 weeks when shower cover surgical site with saran wrap to keep area dry change dressing daily and as needed with gauze return to ER if severe pain, fever, respiratory distress, chest pain Referrals: Lamine Baldwin MD, [facility] [Staff Physician] - Disposition: [facility]/HOME HEALTH CARE - Home Medications Comprehensive Discharge Medication List: Ambulatory Orders Aspirin 81 mg PO DAILY 09/18/18 Lisinopril [Zestril] 2.5 mg PO DAILY 09/18/18 Metformin HCl [Metformin HCl ER] 500 mg PO BID 09/18/18 Oxycodone HCl 5 mg PO PRN PRN 09/18/18 Pregabalin [Lyrica -] 50 mg PO BID 09/18/18 Sitagliptin Phosphate [Januvia] 50 mg PO DAILY 09/18/18"
[2018-09-24] MEDS ORDERED: PT OWN MED DRAWER 7, Y5N ONE (17:43)
[2018-09-24] MEDS ORDERED: ACETAMINOPHEN 325 MG TABLET (FP) PO ONE (18:26)
[2018-09-25] MEDS: oxyCODONE HCL 5 MG TABLET PO PRN ×2 (03:49→10:21)
[2018-09-25] MEDS: DOCUSATE SODIUM 100 MG CAPSULE (FP) PO SCH ×2 (05:40→13:47)
[2018-09-25] MEDS: HEPARIN NA (PORCINE) 5,000 UNITS/ML 1ML VIAL SQ SCH ×2 (05:44→13:47)
[2018-09-25] MEDS: INSULIN SLIDING SCALE (NOVOLOG) 1 VIAL SQ SCH ×2 (06:06→11:26)
--- NOTE | 2018-09-25 08:14 | PN ---
Progress Note (short form) - Note Progress Note: AWAKE NAD CLEARED FOR DC HOME Problem List - Problems (1) S/P lumbar fusion Code(s): Z98.1 - ARTHRODESIS STATUS (2) Diabetes mellitus Code(s): E11.9 - TYPE 2 DIABETES MELLITUS WITHOUT COMPLICATIONS
[2018-09-25] MEDS: FERROUS SO4 325 MG TABLET (FP) PO SCH (08:54)
[2018-09-25] MEDS: LISINOPRIL 5 MG TABLET (FP) PO SCH (10:06)
[2018-09-25] MEDS: POLYETHYLENE GLYCOL 3350 119 GM BTL PO SCH (10:07)
[2018-09-25] MEDS ORDERED: PT OWN MED DRAWER 7, Y5N ONE ×2 (10:20→10:25)
[2018-09-25] MEDS: sitaGLIPtin PHOSPHATE 50 MG TABLET PO SCH (10:21)
[2018-09-25] MEDS: PREGABALIN 50 MG CAPSULE PO SCH (10:22)
[2018-09-25] MEDS: FOLIC ACID 1 MG TABLET (FP) PO SCH (10:27)
[2018-09-25 12:08] VITALS: BP 96/63; PULSE 92; TEMP 98.5
== END 2018-09-25 14:42 | disposition home health service (06) | DRG 455 ==
LOC: JSAMEDAYSX 09:39 → J8W 18:26
PROVIDERS: ADMIT Family Medicine; ATTEND Family Medicine
PROC: 0SG0071 Fusion of Lumbar Vertebral Joint with Autologous Tissue Substitute, Posterior Approach, Posterior Column, Open Approach (ICD-10-PCS; 2018-09-19)
PROC: 01NB0ZZ Release Lumbar Nerve, Open Approach (ICD-10-PCS; 2018-09-19)
PROC: 0JX70ZB Transfer Back Subcutaneous Tissue and Fascia with Skin and Subcutaneous Tissue, Open Approach (ICD-10-PCS; 2018-09-19)
PROC: 0SB20ZZ Excision of Lumbar Vertebral Disc, Open Approach (ICD-10-PCS; 2018-09-19)
PROC: B01BZZZ Fluoroscopy of Spinal Cord (ICD-10-PCS; 2018-09-19)
PROC: 0SG00AJ Fusion of Lumbar Vertebral Joint with Interbody Fusion Device, Posterior Approach, Anterior Column, Open Approach (ICD-10-PCS; principal; 2018-09-19 11:00)
DX: M51.26 Other intervertebral disc displacement, lumbar region (principal); M48.061 Spinal stenosis, lumbar region without neurogenic claudication; E11.9 Type 2 diabetes mellitus without complications; I10 Essential (primary) hypertension; R50.82 Postprocedural fever; M53.2X6 Spinal instabilities, lumbar region; K59.00 Constipation, unspecified; E78.5 Hyperlipidemia, unspecified
CPT/HCPCS: 36415; 71045-TC-FY; 72131-TC; 74018-TC-FY; 76000-TC-FY; 80048; 80053; 81003; 82962; 83605; 85025; 85027; 86850; 86900; 86901; 87040; 87086; 88304-TC; 94010; 94760; 97116-GP; 97162-GP; J0131; J1644; J7030

== ENCOUNTER 2020-09-01 11:34 | Inpatient (IN) | payer OTHER ==
[2020-09-01] MEDS ORDERED: ASPIRIN 81 MG CHEWABLE TABLETS PO ONE (12:09)
[2020-09-01] MEDS ORDERED: ASPIRIN 81 MG CHEWABLE TABLETS ONE (12:32)
[2020-09-01 13:02] LABS: EOS % 4.9 % (0-4.5); HEMOGLOBIN 11.7 GM/dL (11.7-16.9); MCH 24.7 pg (25.7-33.7); MCHC 31.7 g/dl (32.0-35.9); MEAN CELL VOLUME 77.9 fl (80-96); MEAN PLT VOLUME 8.4 fl (7.5-11.1); MONO % 7.8 % (3.8-10.2); NEUT % 56.3 % (42.8-82.8); PLATELET COUNT 328 10^3/uL (134-434); RBC 4.75 M/mm3 (4.00-5.60); RDW 14.4 % (11.9-15.9); WHITE BLOOD COUNT 7.5 K/mm3 (4.0-10.0)
[2020-09-01 13:10] LABS: INR 0.87 (0.83-1.09); PROTHROMBIN TIME (PATIENT) 10.8 SEC (9.7-13.0)
[2020-09-01 13:13] LABS: ACTIVATED PTT 27.8 SECONDS (25.2-36.5)
[2020-09-01 13:21] LABS: CHLORIDE 104 mmol/L (98-107); SODIUM 137 mmol/L (136-145)
[2020-09-01 13:23] LABS: CALCIUM 9.1 mg/dL (8.5-10.1)
[2020-09-01 13:24] LABS: ALBUMIN 3.7 g/dl (3.4-5.0); ANION GAP 9 MMOL/L (8-16); BLOOD UREA NITROGEN 20.5 mg/dL (7-18); CO2 25 mmol/L (21-32); GLUCOSE,RANDOM 96 mg/dL (74-106)
[2020-09-01 13:27] LABS: SGOT/AST 14 U/L (15-37); SGPT/ALT 24 U/L (13-61)
[2020-09-01 13:28] LABS: BILIRUBIN,TOTAL 0.3 mg/dL (0.2-1); CHOLESTEROL 233 mg/dL (50-200); TOT PROT 7.5 g/dl (6.4-8.2)
[2020-09-01 13:29] LABS: TRIGLYCERIDES 261 mg/dL (0-150)
[2020-09-01 13:30] LABS: ALK PHOS 74 U/L (45-117); LDL CHOLESTEROL (ONLY SJRH) 124 mg/dL (5-100)
[2020-09-01 13:31] LABS: HDL CHOLESTEROL 58 mg/dL (40-60)
[2020-09-01 13:42] LABS: PH,URINE 6.5 (5.0-8.0); URINE APPEARANCE CLEAR; URINE BILIRUBIN NEGATIVE (NEGATIVE); URINE COLOR YELLOW; URINE GLUCOSE (UA) NEGATIVE (NEGATIVE); URINE KETONE NEGATIVE (NEGATIVE); URINE LEUK ESTERASE NEGATIVE (NEGATIVE); URINE NITRITE NEGATIVE (NEGATIVE); URINE PROTEIN NEGATIVE (NEGATIVE); URINE UROBILINOGEN 0.2 mg/dL (0.2-1.0)
[2020-09-01] MEDS ORDERED: metFORMIN HCL 500 MG TABLET (FP) PO ONE (16:28)
[2020-09-01] MEDS ORDERED: metFORMIN HCL 500 MG TABLET (FP) ONE (16:38)
[2020-09-01] MEDS: INSULIN SLIDING SCALE (NOVOLOG) 1 VIAL SQ SCH (19:48)
[2020-09-01] MEDS ORDERED: PREGABALIN 100 MG CAPSULE PO SCH (22:00)
[2020-09-01] MEDS ORDERED: ATORVASTATIN CA 80 MG TABLET (FP) ONE (23:58)
[2020-09-02] MEDS: ATORVASTATIN CA 80 MG TABLET (FP) PO SCH ×2 (00:04→21:58)
[2020-09-02] MEDS: INSULIN SLIDING SCALE (NOVOLOG) 1 VIAL SQ SCH ×5 (00:04→21:59)
[2020-09-02 02:14] VITALS: BMI 24.7
[2020-09-02] MEDS ORDERED: ACETAMINOPHEN 325 MG TABLET (FP) PO PRN (03:54)
[2020-09-02 07:10] LABS: BASO % 1.1 % (0-2.0); EOS % 7.3 % (0-4.5); HEMATOCRIT 36.4 % (35.4-49); HEMOGLOBIN 11.7 GM/dL (11.7-16.9); LYMPH % 37.3 % (8-40); MCH 25.1 pg (25.7-33.7); MCHC 32.1 g/dl (32.0-35.9); MEAN CELL VOLUME 78.2 fl (80-96); MEAN PLT VOLUME 8.2 fl (7.5-11.1); MONO % 8.8 % (3.8-10.2); NEUT % 45.5 % (42.8-82.8); PLATELET COUNT 305 10^3/uL (134-434); RBC 4.65 M/mm3 (4.00-5.60); RDW 14.6 % (11.9-15.9); WHITE BLOOD COUNT 7.3 K/mm3 (4.0-10.0)
[2020-09-02 07:39] LABS: ALBUMIN 3.7 g/dl (3.4-5.0); BLOOD UREA NITROGEN 22.6 mg/dL (7-18); CALCIUM 8.9 mg/dL (8.5-10.1)
[2020-09-02 07:42] LABS: CREATININE 1.1 mg/dL (0.55-1.3)
[2020-09-02 07:43] LABS: PHOSPHOROUS 3.5 mg/dL (2.5-4.9)
[2020-09-02 07:44] LABS: BILIRUBIN,TOTAL 0.6 mg/dL (0.2-1); TOT PROT 7.3 g/dl (6.4-8.2)
[2020-09-02] MEDS ORDERED: ASPIRIN 81 MG CHEWABLE TABLETS PO SCH (10:00)
[2020-09-02] MEDS ORDERED: CROMOLYN SODIUM 4% OPHTH DROPS 10 ML BOTTLE OU SCH (10:00)
[2020-09-02] MEDS: ENOXAPARIN NA (PORCINE) 40 MG/0.4 ML DISP.SYRIN SQ SCH (11:00)
[2020-09-02] MEDS: PANTOPRAZOLE 20 MG TABLET PO SCH (11:01)
[2020-09-02] MEDS: CLOPIDOGREL BISULFATE 75 MG TABLET (FP) PO SCH (11:01)
[2020-09-02] MEDS ORDERED: INSULIN (NOVOLOG) ASPART 100 UNITS/ML 10ML VIAL ONE (12:42)
[2020-09-02] MEDS: ASPIRIN COATED 81 MG TABLET.EC PO SCH (12:52)
[2020-09-03] MEDS: INSULIN SLIDING SCALE (NOVOLOG) 1 VIAL SQ SCH ×2 (06:03→11:53)
[2020-09-03 08:29] LABS: BASO % 0.9 % (0-2.0); EOS % 4.4 % (0-4.5); HEMATOCRIT 38.8 % (35.4-49); HEMOGLOBIN 12.6 GM/dL (11.7-16.9); LYMPH % 32.3 % (8-40); MCH 25.3 pg (25.7-33.7); MCHC 32.5 g/dl (32.0-35.9); MEAN CELL VOLUME 77.8 fl (80-96); MEAN PLT VOLUME 8.5 fl (7.5-11.1); MONO % 8.5 % (3.8-10.2); NEUT % 53.9 % (42.8-82.8); PLATELET COUNT 352 10^3/uL (134-434); RBC 4.99 M/mm3 (4.00-5.60); RDW 14.3 % (11.9-15.9); WHITE BLOOD COUNT 7.9 K/mm3 (4.0-10.0)
[2020-09-03 08:45] LABS: CALCIUM 9.2 mg/dL (8.5-10.1)
[2020-09-03 08:49] LABS: CREATININE 1.1 mg/dL (0.55-1.3)
[2020-09-03 08:54] VITALS: BP 137/75; PULSE 84; TEMP 98.1
[2020-09-03] MEDS: ASPIRIN COATED 81 MG TABLET.EC PO SCH (10:13)
[2020-09-03] MEDS: CLOPIDOGREL BISULFATE 75 MG TABLET (FP) PO SCH (10:13)
[2020-09-03] MEDS: PANTOPRAZOLE 20 MG TABLET PO SCH (10:13)
[2020-09-03] MEDS: ENOXAPARIN NA (PORCINE) 40 MG/0.4 ML DISP.SYRIN SQ SCH (10:13)
== END 2020-09-03 13:26 | disposition home health service (06) | DRG 66 ==
LOC: JER 11:34 → JERBED 14:48 → J4W 09-02 01:51
PROVIDERS: ATTEND Internal Medicine
DX: I63.89 Other cerebral infarction (principal); R29.702 NIHSS score 2; I10 Essential (primary) hypertension; E78.5 Hyperlipidemia, unspecified; M54.41 Lumbago with sciatica, right side; E11.40 Type 2 diabetes mellitus with diabetic neuropathy, unspecified; I69.920 Aphasia following unspecified cerebrovascular disease
CPT/HCPCS: 36415; 70496-TC; 70498-TC; 80048; 80053; 80061; 81003; 82550; 82962; 83036; 83090; 83540; 83550; 83721; 83735; 84100; 84443; 84484; 85025; 85610; 85730; 86850; 86900; 86901; 93005; 93010; 93306-TC; 93880-TC; 97116-GP; 97161-GP; 99285-25; C9803; Q9967; U0003; U0005

== ENCOUNTER 2021-12-10 12:12 | Emergency (ER) | payer OTHER ==
[2021-12-10 12:21] VITALS: BP 132/77; PULSE 70; RESP 16; TEMP 97.6; BMI 23.4
[2021-12-10 13:17] LABS: BASO % 0.7 % (0-2.0); EOS % 1.5 % (0-4.5); HEMOGLOBIN 12.4 GM/dL (11.7-16.9); LYMPH % 25.4 % (8-40); MCH 24.5 pg (25.7-33.7); MCHC 31.8 g/dl (32.0-35.9); MEAN CELL VOLUME 77.2 fl (80-96); MEAN PLT VOLUME 8.4 fl (7.5-11.1); MONO % 8.7 % (3.8-10.2); NEUT % 63.7 % (42.8-82.8); PLATELET COUNT 256 10^3/uL (134-434); RBC 5.04 M/mm3 (4.00-5.60); RDW 18.1 % (11.9-15.9); WHITE BLOOD COUNT 7.6 K/mm3 (4.0-10.0)
[2021-12-10 13:46] LABS: CALCIUM 9.4 mg/dL (8.5-10.1)
[2021-12-10 13:47] LABS: ALBUMIN 3.9 g/dl (3.4-5.0); BLOOD UREA NITROGEN 14.7 mg/dL (7-18)
[2021-12-10 13:51] LABS: BILIRUBIN,TOTAL 0.6 mg/dL (0.2-1)
[2021-12-10 13:52] LABS: TOT PROT 7.7 g/dl (6.4-8.2)
[2021-12-10 21:33] LABS: URINE APPEARANCE CLEAR; URINE BILIRUBIN NEGATIVE (NEGATIVE); URINE COLOR YELLOW; URINE GLUCOSE (UA) NEGATIVE (NEGATIVE); URINE KETONE NEGATIVE (NEGATIVE); URINE LEUK ESTERASE NEGATIVE (NEGATIVE); URINE NITRITE NEGATIVE (NEGATIVE); URINE PROTEIN NEGATIVE (NEGATIVE); URINE UROBILINOGEN 0.2 mg/dL (0.2-1.0)
== END 2021-12-10 21:37 | disposition left against medical advice (07) ==
LOC: JER 12:12
DX: R47.1 Dysarthria and anarthria (principal)
CPT/HCPCS: 36415; 70450-TC; 70551-TC; 71045-TC-FY; 80053; 81003; 82962; 84484; 85025; 87086; 93005; 93010; 99285-25; C9803-CS; U0003; U0005